=== PATIENT | male | born 1960 | race Caucasian/White ===

== ENCOUNTER 2016-09-10 08:32 | Outpatient (CLI) ==
[2016-08-18 13:39] VITALS: BMI 13.6
--- NOTE | 2016-09-10 11:05 | MRI ---
EXAM: MRI cervical spine without IV contrast. DATE: September 2016. HISTORY: C-spine surgical fusion. Right side greater than left neck pain causing headaches. TECHNIQUE: Sagittal and axial T1W and T2W sequences of the cervical spine along with sagittal IR an d coronal T2W sequences were obtained using 1.2 Cora magnet. No IV contrast. COMPARISON: CT head 30 June 2011. FINDINGS: Minor rightward curvature the mid cervical spine is observed. Susceptibility hardware fr om anterior plate and screw fixation is evident at C6-7. No acute c-spine fracture, subluxation, os seous malignancy, or jumped facet is evident. Prominent anterior osteophytes, disc desiccation, and moderate disc space narrowing are present at C5-6. Remaining cervical intervertebral discs are nor mal in height. T1W bone marrow signal is somewhat heterogeneous due to areas of fatty infiltration. Cervical and upper thoracic spinal cord reveals no definitive cord edema, myelomalacia, or neoplas m. 1 mm diameter T2W bright vertical signal is identified within the central spinal cord at C6-7 to the midbody of C7. Visible brainstem is normal. There is no Chiari 1 malformation. Mastoid air cells are normal. No thyroid, submandibular, or parotid gland neoplasm is apparent. Trachea, larynx, and epiglottis are normal. Minor bilateral apical/pleural lung scarring is noted. No suspicious lung mass, pneumonia, or pleural effusion is demonstrated. Segmental analysis: C2-3: Normal. C3-4: Broad posterior disc/osteophyte complex (2 mm AP right paracentral, 2.8 mm AP midline, 4 mm A P left paracentral) slightly flattens left anterolateral margin of the cord. Canal is 9.2 mm AP. Mi nimal right and moderate /marked left foraminal stenoses are due to uncinate hypertrophy and minor l eft facet arthropathy. C4-5: Small posterior disc/osteophyte complex (1.8 mm AP) flattens the cord anteriorly. There is m inor ligamentum flavum hypertrophy. Canal is 7.8 mm AP. Mild/moderate right and moderate left fora aly stenoses due to uncinate hypertrophy and minor facet disease. C5-6: Broad posterior disc/osteophyte complex (2.4 mm AP) touches the cord anteriorly. Canal is 8. 2 mm AP. Mild/moderate right and marked left foraminal stenoses due to uncinate hypertrophy and min or facet disease. C6-7: S/P ACDF. Minor posterior disc/osteophyte complex does not contact the cord. Canal is 9.8 m m AP. Mild right and moderate left foraminal stenoses due to uncinate hypertrophy. C7-T1: Normal, except for minor left facet arthropathy T1-2: Normal. IMPRESSIONS: 1. S/P ACDF at C6-7. 2. Multilevel central canal stenosis (C3-4: Mild. C4-5: Moderate. C5-6: Mild. C6-7: Mild). 3. Mild cervical cord flattening. Tiny syrinx at C6-7. 4. Multilevel foraminal stenosis, especially left C3-4. 5. Moderate bilateral apical lung scarring.
== END 2016-09-10 08:33 | disposition home or self-care (01) ==
LOC: RAD 08:32
PROVIDERS: ATTEND Nurse Practitioner Family
DX: M54.2 Cervicalgia (principal); Z98.890 Other specified postprocedural states

== ENCOUNTER 2016-10-09 11:12 | Outpatient (CLI) ==
[2016-08-18 13:39] VITALS: BMI 13.6
--- NOTE | 2016-10-09 11:56 | DI ---
EXAM: Eight views of the cervical spine. History: Cervicalgia. Comparison: MRI cervical spine 09/10/2016 Findings / impression: No acute fracture or subluxation. No prevertebral soft tissue swelling. Pr edental space is not widened. Grossly intact anterior fusion hardware at C6-7. Severe disc space n arrowing at C5-6. Mild to moderate disc space narrowing at C3-4. Atherosclerotic vascular calcific ations. No instability identified on flexion and extension views. The oblique images demonstrate m ultilevel bilateral bony neural foraminal narrowing secondary to uncovertebral and facet hypertrophy and most significant and moderate bilaterally at C4-5 and C5-6.
== END 2016-10-09 11:13 | disposition home or self-care (01) ==
LOC: RAD 11:12
PROVIDERS: ATTEND Nurse Practitioner Family
DX: M54.2 Cervicalgia (principal); M50.20 Other cervical disc displacement, unspecified cervical region; M50.30 Other cervical disc degeneration, unspecified cervical region

== ENCOUNTER 2016-10-15 08:19 | Outpatient (RCR) ==
[2016-08-18 13:39] VITALS: BMI 13.6
--- NOTE | 2016-10-15 09:26 | RS.OPPTEV2 ---
Date of Note: 10/15/16 Visit #: 1 Date of Evaluation: 10/15/16 Date of Onset/Injury/Change in Status: 09/06/15 Surgery Performed?: No Treatment Diagnosis: Neck pain History of Condition/Mechanism of Injury:: Patient has had neck pain for over 20 years and has had ACF of C6-7. He has been in pain management for greater than 10 years for his neck and back pain. He is a poor surgical candidate due to multiple medical complexities. Headaches are his worst pain and he has them continuously but the intensity varies. He uses supplimental O2 at night 2 L/ min due to severe COPD. He avoids pain meds and muscle relaxers as much as possible due to it interferring with his breathing. Prior Level of Function.....Patient was independent with: ADL's, Self Care, Work /Vocation, Caregiving, Ambulation/Mobility, Community Integration/Access Functional Limitations: Sleep, Self Care, ADL's, Reaching, Pushing, Pulling, Lifting, Carrying, Sitting, Standing, Bending, Squatting, Ambulation, Community Access/Integration Current Subjective/complaints:: Patient is very skeptical that PT is able to help him but he is not a surgical candidate and his pain is poorly controlled. He reports he has had PT numerous times in the past with only very temporary benefit (hours following tx). He reports compliance wtih the HEPs he has been given previously by physical therapy. He states that after pain management injections he has very minimal pain for a month or more and he is scheduled to receive these tomorrow. Medical History Medical History: COPD, Arthritis Medical History Comments:: fibromyalgia, he report an embolism which he says comes and goes. Surgical History: Cervical Spine, Other Surgical History Comments:: Aorta to femoral bypass, bilateral knee scopes, 11 cardiac stents Smoking Status: Current every day smoker Hx Home Medications: Plavix, Lipitor, albuterol, combavant, HCTZ, Flexiril, T[place]oli 10 mg Pain Assessment - Pain Description Pain Location: Throughout his neck and shoulders and radiates distally thru his spine. Pain Description: Burning, Tightness, Radiating, Chronic Pain Description: Constant pain Current Pain Intensity: 4-5/10 Worst Pain Intensity: 10/10 Other Comments regarding Pain:: Migraine type HAs are what stops him from being able to do anything. These occur 2-3 X/wk. Functional Outcome Measure Neck Disability Index: 17 - G Codes & Severity Modifier G Codes & Modifier: NA Source of G Code score: NA Observation - Observation Inspection: Patient holds his neck in a guarded position at all times. Posture: Forward Head General Range of Motion: BUE ROM is WNLs Muscle Strength: BUE strength including acid supervisor is WNLs. - ROM Comments: CROM is WFLs in all planes of motion. - Strength Cervical Extension: 5 Normal Cervical Flexion: 5 Normal Cervical Lateral Flexion: 5 Normal Shoulder ROM: Bilaterally WFL's Palpation Palpation Findings: Muscle Guarding Sensation - Sensation Sensation Description: Numbness (Occiput and BUEs intermittently) Interventions - Exercise/Activities/Manual Therapy Exercises/Activities: HEP was reviewed today and pt was able to demonstrate CROM ROM and cervical/UE strengthening exercises he performs routinely to maintain his ROM and strength. He demonstrated good technique. Total minutes of Exercise: 15 Manual Therapy: NA - Charges Total Direct Minutes: 15 Total Treatment Time: 45 Procedures billed for this date of service:: PT Eval (medium) & Ex Assessment Assessment: Chronic pain of cervical spine with most benefit found with pain management injections. He is independent with HEP and has failed to have significant benefit from PT in the past. Patient Education: Education of diagnosis, Body/Joint mechanics, Home Exercise Program Plan - Treatment to be Provided Procedures: Patient Education Modalities: No Modalities - Treatment Plan Frequency: Evaluation only Duration: One time treatment (Patient is compliant iw HEP from previous sessions and it was agreed that he will continue with pain management and if any of his conditions worsen he will present for further eval at that time. No further visits will be scheduled at this time.) ORDER # VISITS AND/OR THROUGH DATE: 10/15/2016 - Treatment Code (1) Cervical radiculopathy Comments: M54.12
== END 2016-11-03 ==
PROVIDERS: ATTEND Nurse Practitioner Family
DX: M54.2 Cervicalgia (principal); M50.20 Other cervical disc displacement, unspecified cervical region; M50.30 Other cervical disc degeneration, unspecified cervical region

== ENCOUNTER 2016-11-09 09:01 | Outpatient (CLI) ==
[2016-08-18 13:39] VITALS: BMI 13.6
--- NOTE | 2016-11-09 12:31 | CT ---
EXAM: CT chest without contrast HISTORY: Chronic obstructive pulmonary disease COMPARISON: CT chest 08/18/2016 and 02/15/2014 TECHNIQUE: Serial axial images of the chest were obtained from the lung apices to the upper abdomen without contrast. These were viewed in multiple planes. FINDINGS: The thyroid is normal. There is minimal atherosclerotic disease of the aorta with ascend ing aortic ectasia measuring 3.4 cm in diameter. The pulmonary arteries are mildly enlarged with th e right pulmonary artery measuring 1.9 cm in diameter. The heart is normal in size without pericard ial effusion. There are no pathologically enlarged mediastinal or hilar lymph nodes. There are calc ified mediastinal and AP window lymph nodes in place. There is no pneumothorax or pleural effusion. There is mild apical pleural thickening and emphysema tous disease present. There is mild persistent but improved airway thickening with significant inte rval improvement in ground-glass nodularity throughout both lungs. Calcified granuloma in the left upper lobe is unchanged. No additional consolidation, pulmonary nodule or mass is identified. The airways are patent. Soft tissues in the upper abdomen demonstrate a right renal cyst measuring 1.8 cm in diameter. The osseous structures demonstrate no lytic or blastic lesion. There is anterior fusion hardware of the cervical spine. IMPRESSION: 1. Interval improvement and bronchial wall thickening with nodular ground-glass which has resolved since prior examination consistent with small airways infection versus inflammation. 2. No acute consolidation or additional nodule. 3. Scattered emphysematous disease. 4. Unchanged right renal cyst.
== END 2016-11-09 09:02 | disposition home or self-care (01) ==
LOC: RAD 09:01
PROVIDERS: ATTEND Nurse Practitioner Family
DX: J44.9 Chronic obstructive pulmonary disease, unspecified (principal); I10 Essential (primary) hypertension; R93.8 Abnormal findings on diagnostic imaging of other specified body structures

== ENCOUNTER 2017-01-22 10:29 | Outpatient (CLI) ==
[2016-09-10 08:35] VITALS: BMI 13.6
[2017-01-22 10:58] LABS: BASOPHILS % (AUTO) 0.3 % (0.0-3.0); EOSINOPHILS # (AUTO) 0.4 K/ul (0.0-0.7); EOSINOPHILS % (AUTO) 5.5 % (0.0-7.0); HEMATOCRIT 40.2 % (42.0-52.0); HEMOGLOBIN 13.8 g/dl (14.0-18.0); IMMATURE GRANULOCYTE % (AUTO) 0.3 % (0.0-5.0); LYMPHOCYTES % (AUTO) 26.6 (10.0-50.0); MEAN CORPUSCULAR HEMOGLOBIN 30.3 pg (27.0-31.0); MEAN CORPUSCULAR HGB CONC 34.3 (31.8-35.4); MEAN CORPUSCULAR VOLUME 88.4 fl (80.0-94.0); MONOCYTES # (AUTO) 0.8 K/uL (0.4-2.0); MONOCYTES % (AUTO) 10.2 (0-10); NEUTROPHILS # (AUTO) 4.4 K/ul (2.0-6.9); NEUTROPHILS % (AUTO) 57.1; PLATELET COUNT 193 10^3/uL (140-440); RED BLOOD COUNT 4.55 10^6/ul (4.70-6.10); WHITE BLOOD COUNT 7.66 K/ul (4.2-10.2)
[2017-01-22 11:27] LABS: ALBUMIN 3.8 g/dL (3.4-5.0); ALBUMIN/GLOBULIN RATIO 1.12; ANION GAP 14.2; BILIRUBIN,TOTAL 0.47 mg/dL (0.00-1.20); BUN/CREATININE RATIO 10.6; CALCIUM 9.5 mg/dL (8.2-10.2); CHOL/HDL RATIO 3.1 (4.5-6.4); CREATININE 1.32 mg/dL (0.60-1.10); POTASSIUM 4.2 mmol/L (3.5-5.1); TOTAL PROTEIN 7.2 g/dL (6.4-8.2)
== END 2017-01-22 10:30 | disposition home or self-care (01) ==
LOC: LAB 10:29
PROVIDERS: ATTEND Emergency Medicine
DX: E78.5 Hyperlipidemia, unspecified (principal); J44.9 Chronic obstructive pulmonary disease, unspecified; I25.10 Atherosclerotic heart disease of native coronary artery without angina pectoris; I73.9 Peripheral vascular disease, unspecified; I10 Essential (primary) hypertension
CPT/HCPCS: 36415; 80053; 80061; 84443; 85025

== ENCOUNTER 2017-06-04 16:16 | Outpatient (CLI) ==
[2017-06-04 21:54] VITALS: BMI 12.9
== END 2017-06-04 16:17 | disposition critical access hospital (66) ==
LOC: AMBL 16:16
DX: R53.1 Weakness (principal); R63.0 Anorexia; R06.9 Unspecified abnormalities of breathing; R11.10 Vomiting, unspecified; R00.0 Tachycardia, unspecified

== ENCOUNTER 2017-06-04 16:24 | Inpatient (IN) ==
--- NOTE | 2017-06-04 16:53 | ED.PDOC ---
General Stated Complaint: Nausea, vomiting, diarrhea, SOB, weakness x2 weeks, getting progressively worse. Too weak to stand. unable to keep down any meds. Information Source: Patient, EMT <NANCY WHITTAKER - Last Filed: 06/04/17 19:10> Time Seen by Physician: 16:40 Nursing and Triage Documentation Reviewed and Agree: Yes <KAMILA COOLEY - Last Filed: 06/04/17 20:27> ED Provider: Dr. KAMILA COOLEY Chief Complaint: Weakness 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 ), Nausea, Vomiting (TNTC in past 24 hours), Diarrhea Recent Echo/LV Function: No Respiratory Distress: Mild JVD Present: No Tachypnea Present: No Stridor Present: No Abdominal Findings: Present: Normal findings Meningeal Signs Positive: No Focal Weakness: Present: None Focal Sensory Loss: Present: None Gait: Unable Gag Reflex Present: Yes Babinski Sign: Negative Right, Negative Left Skin Findings: Present: Normal findings Joint Swelling Present: No In-Dwelling Device Present: No Differential Diagnosis: Cardiac Ischemia, Sepsis, UTI, Other (COPD acute exac, viral GE) Quality Indicators For Pneumonia/CAP: Blood Cultures-SCU admit, SpO2 assessed, Vital signs, Mental status assessed <NANCY WHITTAKER - Last Filed: 06/04/17 19:10> Review of Systems - Review Of Systems Constitutional: Reports: Weakness Eyes: Reports: No symptoms Ears, Nose, Mouth, Throat: Reports: No symptoms Respiratory: Reports: Cough (FLOOR COVERING PRINTER ASSISTANT), Short of air Cardiac: Reports: No symptoms GI: Reports: Diarrhea, Nausea, Vomiting : Reports: No symptoms Musculoskeletal: Reports: Muscle pain (aching all over) Skin: Reports: No symptoms Neurological: Reports: No symptoms All Other Systems: Reviewed and Negative <NANCY WHITTAKER - Last Filed: 06/04/17 19:10> Past Medical History - Past Medical History Previously Healthy: No Endocrine: Reports: Dyslipidemia Cardiovascular: Reports: CAD, [place], Hypertension Respiratory: Reports: COPD Hematological: Reports: None Gastrointestinal: Reports: GERD Genitourinary: Reports: Other (prostate DISEASE ) Neuro/Psych: Reports: None Musculoskeletal: Reports: None Cancer: Reports: None - Surgical History General Surgical History: Reports: Stent, Other (pacemaker->removed) - Family History Family History: Reports: Unknown - Social History Smoking Status: Former smoker Hx Substance Use: No Alcohol Screening: None Lives: With family - Immunizations Tetanus Shot up to Date: No Influenza Vaccine within 12 Months: No Pneumococcal Vaccine up to Date: No <NANCY WHITTAKER - Last Filed: 06/04/17 19:10> Physical Exam - Physical Exam Appearance: Ill-appearing Ill-appearing: Moderate Pain Distress: None Eyes: MIKEL, EOMI, Conjunctiva clear ENT: Nose normal, Oropharynx normal, TMs Occluded (TMs betts and dull) Neck: Supple Respiratory: Airway patent, Breath sounds equal, Rhonchi (scattered rhonchi in AF) Cardiovascular: RRR, Pulses normal, No rub, No murmur GI/: Soft, No masses, Bowel sounds normal, No Organomegaly, Tender (mild epigastric tenderness) Musculoskeletal: ROM intact, No edema, No calf tenderness, Limited strength Skin: Warm, Dry, Normal color Neurological: Sensation intact, Motor intact, Reflexes intact, Cranial nerves intact, Alert, Oriented Psychiatric: Affect appropriate, Mood appropriate <NANCY WHITTAKER - Last Filed: 06/04/17 19:10> Interpretation - Radiology Interpretation Radiology Interpretation By: Radiologist Radiology Results: No acute changes Exam Interpreted: Portable CXR Xray Comments: Lungs: COPD <NANCY WHITTAKER - Last Filed: 06/04/17 19:10> Re-Evaluation - Re-Evaluation Time of Re-Evaluation: 18:51 Status: Improved Vital Signs Stable: Yes Appearance: NAD Lungs: Other (scattered rhonchi) Skin: Warm and Dry Neuro: Alert and Oriented X3 CV: RRR Additional Comments: patient feeling better after some IV fluids in <NANCY WHITTAKER - Last Filed: 06/04/17 19:10> - Re-Evaluation Time of Re-Evaluation: 20:26 Status: Improved Vital Signs Stable: Yes Appearance: NAD <KAMILA COOLEY - Last Filed: 06/04/17 20:27> Physician Notification - Case Discussed Physician Notified: Dr. Hutchins Time of Notification: 18:56 (agrees patient needs admission but requests ABG ( refused by patient) & D-dimer first. CT PE protocol if positive) Endorsed To/Discussed With: Dr. Cooley Time of Discussion: 19:11 <NANCY WHITTAKER - Last Filed: 06/04/17 19:10> Critical Care Note - Critical Care Note Total Time (mins): 0 <NANCY WHITTAKER - Last Filed: 06/04/17 19:10> - Critical Care Note Total Time (mins): 35 <KAMILA COOLEY - Last Filed: 06/04/17 20:27> Course - Course Hematology/Chemistry: 06/04/17 17:00 06/04/17 17:00 <NACNY WHITTAKER - Last Filed: 06/04/17 19:10> - Course Hematology/Chemistry: 06/04/17 17:00 06/04/17 17:00 <KAMILA COOLEY - Last Filed: 06/04/17 20:27> - Course Orders, Labs, Meds: Lab Review 06/04/17 06/04/17 06/04/17 17:00 17:00 17:00 WBC 6.97 RBC 4.95 Hgb 14.8 Hct 42.5 MCV 85.9 MCH 29.9 MCHC 34.8 RDW Coeff of Demian 13.0 Plt Count 204 Immature Gran % (Auto) 0.4 Neut % (Auto) 80.9 Lymph % (Auto) 12.2 [place] % (Auto) 6.2 Eos % (Auto) 0.0 Baso % (Auto) 0.3 Immature Gran # (Auto) 0.0 Neut # 5.6 Lymph # 0.9 [place] # 0.4 Eos # 0.0 Baso # 0.0 D-Dimer (Manual) Sodium 141 Potassium 3.9 Chloride 100 Carbon Dioxide 23 Anion Gap 21.9 BUN 54 H Creatinine 1.32 H Estimated GFR (MDRD) 56.00 BUN/Creatinine Ratio 40.90 Glucose 115 H Calcium 10.4 H Total Bilirubin 0.58 AST 104 H ALT 77 Alkaline Phosphatase 81 Total Creatine Kinase 90 Troponin I 0.0140 B-Natriuretic Peptide 48 Total Protein 8.2 Albumin 3.4 Globulin 4.8 Albumin/Globulin Ratio 0.71 Influenza A (Rapid) Influenza B (Rapid) 06/04/17 06/04/17 17:00 17:10 WBC RBC Hgb Hct MCV MCH MCHC RDW Coeff of Demian Plt Count Immature Gran % (Auto) Neut % (Auto) Lymph % (Auto) [place] % (Auto) Eos % (Auto) Baso % (Auto) Immature Gran # (Auto) Neut # Lymph # [place] # Eos # Baso # D-Dimer (Manual) 4029.55 Sodium Potassium Chloride Carbon Dioxide Anion Gap BUN Creatinine Estimated GFR (MDRD) BUN/Creatinine Ratio Glucose Calcium Total Bilirubin AST ALT Alkaline Phosphatase Total Creatine Kinase Troponin I B-Natriuretic Peptide Total Protein Albumin Globulin Albumin/Globulin Ratio Influenza A (Rapid) Negative Influenza B (Rapid) Negative Orders Category Date Time Status ADMIT PATIENT INPATIENT .TO MEDS[facility]G (MONITORED BED) ADMISSION 06/04/17 20: 07 Ordered EKG-(ED ONLY) Stat CARDIO 06/04/17 16:50 Completed OXYGEN Routine CARDIO 06/04/17 20:07 Ordered ACTIVITY .Up ad Janet CARE 06/04/17 20:09 Ordered GIVE HS SNACK 2100 CARE 06/04/17 20:11 Ordered INTAKE & OUTPUT Q8HR CARE 06/04/17 20:07 Ordered IV ACCESS ONCE CARE 06/04/17 16:51 Active TELEMETRY MONITORING TELE CARE 06/04/17 20:08 Ordered VITAL SIGNS Q4HR CARE 06/04/17 20:09 Ordered CLEAR LIQUID DIET DIETARY 06/04/17 Breakfast Ordered HS SNACK DIETARY 06/04/17 Dinner Ordered ED APPLY O2 .ONCE EMERGENCY 06/04/17 16:51 Active ED VITAL SIGNS Q1HR EMERGENCY 06/04/17 16:51 Active BASIC METABOLIC PANEL DAILY@0600 LAB 06/05/17 06:00 Ordered BASIC METABOLIC PANEL DAILY@0600 LAB 06/06/17 06:00 Ordered BASIC METABOLIC PANEL DAILY@0600 LAB 06/07/17 06:00 Ordered BASIC METABOLIC PANEL DAILY@0600 LAB 06/08/17 06:00 Ordered BASIC METABOLIC PANEL DAILY@0600 LAB 06/09/17 06:00 Ordered BASIC METABOLIC PANEL DAILY@0600 LAB 06/10/17 06:00 Ordered BASIC METABOLIC PANEL DAILY@0600 LAB 06/11/17 06:00 Ordered BASIC METABOLIC PANEL DAILY@0600 LAB 06/12/17 06:00 Ordered BASIC METABOLIC PANEL DAILY@0600 LAB 06/13/17 06:00 Ordered BASIC METABOLIC PANEL DAILY@0600 LAB 06/14/17 06:00 Ordered BASIC METABOLIC PANEL DAILY@0600 LAB 06/15/17 06:00 Ordered BASIC METABOLIC PANEL DAILY@06 LAB 06/16/17 06:00 Ordered BASIC METABOLIC PANEL DAILY@06 LAB 06/17/17 06:00 Ordered BASIC METABOLIC PANEL DAILY@0600 LAB 06/18/17 06:00 Ordered BASIC METABOLIC PANEL DAILY@0600 LAB 06/19/17 06:00 Ordered BASIC METABOLIC PANEL DAILY@0600 LAB 06/20/17 06:00 Ordered BASIC METABOLIC PANEL DAILY@06 LAB 06/21/17 06:00 Ordered BASIC METABOLIC PANEL DAILY@06 LAB 06/22/17 06:00 Ordered BASIC METABOLIC PANEL DAILY@06 LAB 06/23/17 06:00 Ordered BASIC METABOLIC PANEL DAILY@06 LAB 06/24/17 06:00 Ordered BLOOD CULTURE Stat LAB 06/04/17 18:00 Received BNP [B-TYPE NATRIURETIC PEPTIDE] Stat LAB 06/04/17 17:00 Completed CBC W/ AUTO DIFF DAILY@0600 LAB 06/05/17 06:00 Ordered CBC W/ AUTO DIFF DAILY@06 LAB 06/06/17 06:00 Ordered CBC W/ AUTO DIFF DAILY@06 LAB 06/07/17 06:00 Ordered CBC W/ AUTO DIFF DAILY@06 LAB 06/08/17 06:00 Ordered CBC W/ AUTO DIFF DAILY@06 LAB 06/09/17 06:00 Ordered CBC W/ AUTO DIFF DAILY@06 LAB 06/10/17 06:00 Ordered CBC W/ AUTO DIFF DAILY@0600 LAB 06/11/17 06:00 Ordered CBC W/ AUTO DIFF DAILY@06 LAB 06/12/17 06:00 Ordered CBC W/ AUTO DIFF DAILY@06 LAB 06/13/17 06:00 Ordered CBC W/ AUTO DIFF DAILY@06 LAB 06/14/17 06:00 Ordered CBC W/ AUTO DIFF DAILY@06 LAB 06/15/17 06:00 Ordered CBC W/ AUTO DIFF DAILY@06 LAB 06/16/17 06:00 Ordered CBC W/ AUTO DIFF DAILY@06 LAB 06/17/17 06:00 Ordered CBC W/ AUTO DIFF DAILY@0600 LAB 06/18/17 06:00 Ordered CBC W/ AUTO DIFF DAILY@0600 LAB 06/19/17 06:00 Ordered CBC W/ AUTO DIFF DAILY@06 LAB 06/20/17 06:00 Ordered CBC W/ AUTO DIFF DAILY@0600 LAB 06/21/17 06:00 Ordered CBC W/ AUTO DIFF DAILY@0600 LAB 06/22/17 06:00 Ordered CBC W/ AUTO DIFF DAILY@0600 LAB 06/23/17 06:00 Ordered CBC W/ AUTO DIFF DAILY@0600 LAB 06/24/17 06:00 Ordered CBC W/ AUTO DIFF Stat LAB 06/04/17 17:00 Completed CK [CREATINE KINASE] Stat LAB 06/04/17 17:00 Completed COMPREHENSIVE METABOLIC PANEL Stat LAB 06/04/17 17:00 Completed D-DIMER Stat LAB 06/04/17 17:00 Completed MOLECULAR GROUP A STREP Stat LAB 06/04/17 17:10 Results RAPID FLU A/B Stat LAB 06/04/17 17:10 Completed STREP SCREEN Stat LAB 06/04/17 17:10 Results TROPONIN I Stat LAB 06/04/17 17:00 Completed URINALYSIS C & S IF INDICATED Stat LAB 06/04/17 16:50 Uncollected Ceftriaxone Sodium [Rocephin] 1 gm MEDS 06/04/17 20:30 Ordered 0.9 % Sodium Chloride [Sodium Chloride] 50 ml IV DAILY Enoxaparin Sodium [Lovenox] MEDS 06/05/17 09:00 Ordered 40 mg SUBCUT DAILY Methylprednisolone Sod Succ/Pf [Solu-Medrol 40 mg] MEDS 06/04/17 21:00 Ordered 40 mg IVP Q8HR Ondansetron HCl/Pf [Zofran 4 mg/2 ml] MEDS 06/04/17 18:52 Discontinued 4 mg IVP ONCE STA Ondansetron HCl/Pf [Zofran 4 mg/2 ml] MEDS 06/04/17 20:07 Ordered 4 mg IVP Q6H PRN Sodium Chloride 0.9% [Sodium Chloride] 1,000 ml MEDS 06/04/17 20:30 Ordered IV 125 mls/hr Sodium Chloride 0.9% [Sodium Chloride] 1,000 ml MEDS 06/04/17 17:34 Discontinued IV BOLUS RESUSCITATION STATUS Routine OTHERS 06/04/17 20:07 Ordered CHEST, 1V AP ONLY Stat RADS 06/04/17 16:51 Completed PT CONSULT Routine THERAPIES 06/04/17 Ordered Medications Generic Name Dose Route Start Last Admin Trade Name Freq PRN Reason Stop Dose Admin Albuterol/Ipratropium 1 vial 06/04/17 20:18 Duoneb NEB RTQ4H PRN Wheezing Alprazolam 0.5 mg 06/05/17 08:00 Xanax PO BID BREAKFAST&LUNCH [facility] Aspirin 81 mg 06/05/17 09:00 Aspirin Ec PO DAILY [facility] Atorvastatin Calcium 20 mg 06/05/17 09:00 Lipitor PO DAILY [facility] Clopidogrel Bisulfate 75 mg 06/05/17 09:00 Plavix PO DAILY [facility] Enoxaparin Sodium 40 mg 06/05/17 09:00 Lovenox SUBCUT DAILY [facility] Ceftriaxone Sodium 1 gm/ 50 mls @ 75 mls/hr 06/04/17 20:30 Sodium Chloride IV DAILY [facility] Sodium Chloride 1,000 mls @ 125 mls/hr 06/04/17 20:30 Sodium Chloride IV .Q8H [facility] Azithromycin 500 mg/ Sodium 250 mls @ 125 mls/hr 06/05/17 09:00 Chloride IV 06/08/17 08:59 DAILY [facility] Methylprednisolone Sodium Succinate 40 mg 06/04/17 21:00 Solu-Medrol 40 Mg IVP Q8HR [facility] Non-Formulary Medication 1 tab 06/04/17 21:00 Hydrocodone Bit/Acetaminophen PO TID [facility] Non-Formulary Medication 100 mg 06/04/17 21:00 Metoprolol Tartrate [Metoprolol Tartrate] PO BID [facility] Non-Formulary Medication 1 tab 06/04/17 20:19 Nitroglycerin [Nitrostat] SL PRN PRN chest pain Ondansetron HCl 4 mg 06/04/17 20:07 Zofran 4 Mg/2 Ml IVP Q6H PRN Nausea / Vomiting Discontinued Medications Generic Name Dose Route Start Last Admin Trade Name Freq PRN Reason Stop Dose Admin Sodium Chloride 1,000 mls @ 1,000 mls/hr 06/04/17 17:34 06/04/17 18:04 Sodium Chloride IV 06/04/17 18:33 150 mls/hr BOLUS STA Administration Ondansetron HCl 4 mg 06/04/17 18:52 06/04/17 18:57 Zofran 4 Mg/2 Ml IVP 06/04/17 18:53 4 mg ONCE STA Administration Vital Signs: Temp Pulse Resp BP Pulse Ox 06/04/17 18:40 120/94 H 06/04/17 18:03 123/91 H 94 L 06/04/17 17:07 122/91 H 06/04/17 16:25 98.9 F 95 H 28 H 128/100 H 93 L Departure <WHITTAKERNANCY - Last Filed: 06/04/17 19:10> - Departure Time of Disposition: 20:24 Pt referred to PMD for follow-up: No (admitted ) Disposition Discussed With: Patient <KAMILA COOLEY - Last Filed: 06/04/17 20:27> - Departure Disposition: ADMITTED INPATIENT Discharge Problem: COPD exacerbation, Dehydration, moderate Chronic renal insufficiency Qualifiers: Chronic kidney disease stage: stage 2 (mild) Qualified Code(s): N18.2 - Chronic kidney disease, stage 2 (mild) Condition: Fair Allergies/Adverse Reactions: Allergies promethazine [From Phenergan] Adverse Reaction (Verified 06/04/17 16:36) Home Medications: Ambulatory Orders Aspirin [Aspirin EC] 81 mg PO DAILY 11/07/13 Hydrocodone Bit/Acetaminophen [Lortab 10-500] 1 tab PO TID 11/07/13 Nitroglycerin [Nitrostat] 1 tab SL PRN PRN 11/07/13 Alprazolam [Xanax] 0.5 mg PO BID BREAKFAST&LUNCH 08/08/15
[2017-06-04 17:15] LABS: BASOPHILS % (AUTO) 0.3 % (0.0-3.0); HEMATOCRIT 42.5 % (42.0-52.0); HEMOGLOBIN 14.8 g/dl (14.0-18.0); IMMATURE GRANULOCYTE % (AUTO) 0.4 % (0.0-5.0); LYMPHOCYTES # (AUTO) 0.9 K/uL (0.60-3.4); LYMPHOCYTES % (AUTO) 12.2 (10.0-50.0); MEAN CORPUSCULAR HEMOGLOBIN 29.9 pg (27.0-31.0); MEAN CORPUSCULAR HGB CONC 34.8 (31.8-35.4); MEAN CORPUSCULAR VOLUME 85.9 fl (80.0-94.0); MONOCYTES # (AUTO) 0.4 K/uL (0.4-2.0); MONOCYTES % (AUTO) 6.2 (0-10); NEUTROPHILS # (AUTO) 5.6 K/ul (2.0-6.9); NEUTROPHILS % (AUTO) 80.9; PLATELET COUNT 204 10^3/uL (140-440); RED BLOOD COUNT 4.95 10^6/ul (4.70-6.10); WHITE BLOOD COUNT 6.97 K/ul (4.2-10.2)
--- NOTE | 2017-06-04 17:24 | DI ---
EXAM: Single view of the chest. History: Weakness, short of breath Comparison: Chest radiograph 09/02/2016, chest CT 11/09/2016 Findings: Heart size is normal. Hyperinflation. No focal consolidation. No appreciable pleural fl uid and no pneumothorax. No acute osseous abnormalities. Postsurgical changes of the cervical spine . Impression: No acute cardiopulmonary process. Chronic obstructive pulmonary disease.
[2017-06-04 17:33] LABS: ALBUMIN 3.4 g/dL (3.4-5.0); ALBUMIN/GLOBULIN RATIO 0.71; ANION GAP 21.9; BILIRUBIN,TOTAL 0.58 mg/dL (0.00-1.20); BUN/CREATININE RATIO 40.9; CALCIUM 10.4 mg/dL (8.2-10.2); CREATININE 1.32 mg/dL (0.60-1.10); POTASSIUM 3.9 mmol/L (3.5-5.1); TOTAL PROTEIN 8.2 g/dL (6.4-8.2); TROPONIN I 0.014 ng/ml (0.0000-0.4000)
[2017-06-04] MEDS ORDERED: SODIUM CHLORIDE 1,000 ML IV STA (17:34)
[2017-06-04 17:37] LABS: FLU INTERNAL QC INTERNAL QC VALID; RAPID FLU A NEGATIVE (NEGATIVE); RAPID FLU B NEGATIVE (NEGATIVE)
[2017-06-04] MEDS ORDERED: ZOFRAN 4 MG/2 ML IVP STA (18:52)
[2017-06-04] MEDS ORDERED: DUONEB NEB PRN (20:18)
[2017-06-04] MEDS ORDERED: NITROGLYCERIN SL PRN (20:19)
[2017-06-04] MEDS ORDERED: PROTONIX IV IVP STA (20:25)
[2017-06-04] MEDS ORDERED: ROCEPHIN 1 GM in SODIUM CHLORIDE 50 ML IV SCH (20:30)
[2017-06-04] MEDS ORDERED: NON-FORMULARY MEDICATION (Hydrocodone Bit/Acetaminophen 1 TAB) PO SCH (21:00)
[2017-06-04] MEDS ORDERED: NON-FORMULARY MEDICATION (Metoprolol Tartrate [Metoprolol Tartrate] 100 MG) PO SCH (21:00)
[2017-06-04] MEDS ORDERED: ROCEPHIN ONE ×2 (21:18→21:20)
[2017-06-04] MEDS: SOLU-MEDROL 40 MG IVP SCH (21:26)
[2017-06-04] MEDS: ZOFRAN 4 MG/2 ML IVP PRN (21:26)
[2017-06-04] MEDS ORDERED: SODIUM CHLORIDE 50 ML IV ONE (21:27)
[2017-06-04 21:54] VITALS: BMI 12.9
[2017-06-05] MEDS ORDERED: ACETAMINOPHEN PO SCH (01:03)
[2017-06-05] MEDS ORDERED: HYDROCODONE PO SCH (01:03)
[2017-06-05] MEDS: SODIUM CHLORIDE 1,000 ML IV SCH ×4 (01:18→19:05)
[2017-06-05 05:31] LABS: BASOPHILS % (AUTO) 0.1 % (0.0-3.0); HEMATOCRIT 33.8 % (42.0-52.0); HEMOGLOBIN 11.4 g/dl (14.0-18.0); IMMATURE GRANULOCYTE % (AUTO) 0.7 % (0.0-5.0); LYMPHOCYTES # (AUTO) 0.6 K/uL (0.60-3.4); LYMPHOCYTES % (AUTO) 7.9 (10.0-50.0); MEAN CORPUSCULAR HEMOGLOBIN 29.8 pg (27.0-31.0); MEAN CORPUSCULAR HGB CONC 33.7 (31.8-35.4); MEAN CORPUSCULAR VOLUME 88.3 fl (80.0-94.0); MONOCYTES # (AUTO) 0.2 K/uL (0.4-2.0); NEUTROPHILS # (AUTO) 6.8 K/ul (2.0-6.9); NEUTROPHILS % (AUTO) 88.3; PLATELET COUNT 192 10^3/uL (140-440); RED BLOOD COUNT 3.83 10^6/ul (4.70-6.10); WHITE BLOOD COUNT 7.68 K/ul (4.2-10.2)
[2017-06-05] MEDS: SOLU-MEDROL 40 MG IVP SCH ×3 (05:49→20:31)
[2017-06-05 06:07] LABS: ANION GAP 17.4; BUN/CREATININE RATIO 36.66; CREATININE 1.2 mg/dL (0.60-1.10); POTASSIUM 4.4 mmol/L (3.5-5.1)
[2017-06-05 06:09] LABS: ADD URINE MICROSCOPIC YES; BILIRUBIN,URINE Negative (NEGATIVE); KETONES,URINE 1+ (NEGATIVE); LEUKOCYTE ESTERASE ,URINE Negative (NEGATIVE); NITRITE,URINE Negative (NEGATIVE); PH,URINE 5.5 (5-9); PROTEIN,URINE 1+ (NEGATIVE); URINE, BLOOD Negative (NEGATIVE)
[2017-06-05] MEDS ORDERED: NITROSTAT SL PRN (06:59)
[2017-06-05] MEDS: ZOFRAN 4 MG/2 ML IVP PRN (08:49)
[2017-06-05] MEDS: XANAX PO SCH ×2 (09:03→12:01)
[2017-06-05] MEDS: ASPIRIN EC PO SCH (09:04)
[2017-06-05] MEDS: LOVENOX SUBCUT SCH (09:04)
[2017-06-05] MEDS: LIPITOR PO SCH (09:04)
[2017-06-05] MEDS: NORCO 10-325 PO SCH ×3 (09:04→20:32)
[2017-06-05] MEDS: LOPRESSOR PO SCH ×2 (09:04→20:32)
[2017-06-05] MEDS: PLAVIX PO SCH (09:04)
[2017-06-05] MEDS: ZITHROMAX 500 MG in SODIUM CHLORIDE 250 ML IV SCH (09:05)
[2017-06-05] MEDS: ROCEPHIN 1 GM in SODIUM CHLORIDE 50 ML IV SCH (20:31)
[2017-06-06] MEDS: SODIUM CHLORIDE 1,000 ML IV SCH ×4 (02:39→20:43)
[2017-06-06 05:34] LABS: BASOPHILS % (AUTO) 0.3 % (0.0-3.0); HEMATOCRIT 32.8 % (42.0-52.0); HEMOGLOBIN 10.8 g/dl (14.0-18.0); IMMATURE GRANULOCYTE % (AUTO) 0.6 % (0.0-5.0); LYMPHOCYTES # (AUTO) 0.6 K/uL (0.60-3.4); LYMPHOCYTES % (AUTO) 7.5 (10.0-50.0); MEAN CORPUSCULAR HEMOGLOBIN 29.8 pg (27.0-31.0); MEAN CORPUSCULAR HGB CONC 32.9 (31.8-35.4); MEAN CORPUSCULAR VOLUME 90.4 fl (80.0-94.0); MONOCYTES # (AUTO) 0.3 K/uL (0.4-2.0); NEUTROPHILS # (AUTO) 6.8 K/ul (2.0-6.9); NEUTROPHILS % (AUTO) 87.6; PLATELET COUNT 250 10^3/uL (140-440); RED BLOOD COUNT 3.63 10^6/ul (4.70-6.10); WHITE BLOOD COUNT 7.75 K/ul (4.2-10.2)
[2017-06-06] MEDS: ZOFRAN 4 MG/2 ML IVP PRN (05:42)
[2017-06-06] MEDS: SOLU-MEDROL 40 MG IVP SCH ×3 (05:42→20:57)
[2017-06-06 05:54] LABS: ANION GAP 12.8; BUN/CREATININE RATIO 32.82; CALCIUM 8.2 mg/dL (8.2-10.2); CREATININE 1.31 mg/dL (0.60-1.10); POTASSIUM 3.8 mmol/L (3.5-5.1)
[2017-06-06] MEDS: LOVENOX SUBCUT SCH (09:49)
[2017-06-06] MEDS: LIPITOR PO SCH (09:49)
[2017-06-06] MEDS: XANAX PO SCH ×2 (09:49→12:09)
[2017-06-06] MEDS: ZITHROMAX 500 MG in SODIUM CHLORIDE 250 ML IV SCH (09:49)
[2017-06-06] MEDS: NORCO 10-325 PO SCH ×3 (09:49→20:44)
[2017-06-06] MEDS: PLAVIX PO SCH (09:49)
[2017-06-06] MEDS: ASPIRIN EC PO SCH (09:49)
--- NOTE | 2017-06-06 09:55 | CT ---
EXAM: CT scan of the abdomen and pelvis without contrast HISTORY: Abdominal pain TECHNIQUE: Imaging of the abdomen and pelvis was performed without intravenous contrast. 3 mm thin axial images and coronal and sagittal reconstructions were provided for interpretation. Comparison 03/04/2016. FINDINGS: The pancreas, adrenal glands and kidneys appear normal. The proximal ureters are normal s ize. The small and large bowel loops are normal caliber. There is no free air. No acute abnormalit ies are seen within the anterior abdominal wall. No retroperitoneal abnormalities are seen. The helical images obtained through the pelvis demonstrate a normal appearance of the rectum, urinary bladder. There is no free fluid seen within the pelvis. Scattered diverticula are seen within the sigmoid colon without acute inflammation. Lung bases are clear. No lytic or blastic lesions are see n within the osseous structures. IMPRESSION: There is no bowel obstruction or acute inflammatory change seen within the abdomen and p elida. There is no ureteral obstruction. Mild diverticular disease of the sigmoid colon without acute inflammation.
[2017-06-06] MEDS: ROCEPHIN 1 GM in SODIUM CHLORIDE 50 ML IV SCH (20:44)
[2017-06-07] MEDS: SODIUM CHLORIDE 1,000 ML IV SCH ×3 (04:43→23:13)
[2017-06-07] MEDS: SOLU-MEDROL 40 MG IVP SCH ×3 (05:09→21:29)
[2017-06-07] MEDS: ZOFRAN 4 MG/2 ML IVP PRN (05:10)
[2017-06-07 05:50] LABS: BASOPHILS % (AUTO) 0.1 % (0.0-3.0); HEMATOCRIT 29.9 % (42.0-52.0); HEMOGLOBIN 9.7 g/dl (14.0-18.0); LYMPHOCYTES # (AUTO) 0.4 K/uL (0.60-3.4); LYMPHOCYTES % (AUTO) 2.8 (10.0-50.0); MEAN CORPUSCULAR HEMOGLOBIN 29.9 pg (27.0-31.0); MEAN CORPUSCULAR HGB CONC 32.4 (31.8-35.4); MEAN CORPUSCULAR VOLUME 92.3 fl (80.0-94.0); MONOCYTES # (AUTO) 0.4 K/uL (0.4-2.0); MONOCYTES % (AUTO) 2.9 (0-10); NEUTROPHILS # (AUTO) 12.5 K/ul (2.0-6.9); NEUTROPHILS % (AUTO) 93.2; PLATELET COUNT 296 10^3/uL (140-440); RED BLOOD COUNT 3.24 10^6/ul (4.70-6.10); WHITE BLOOD COUNT 13.42 K/ul (4.2-10.2)
[2017-06-07 06:19] LABS: ANION GAP 14.3; BUN/CREATININE RATIO 31.25; CALCIUM 8.2 mg/dL (8.2-10.2); CREATININE 1.12 mg/dL (0.60-1.10); POTASSIUM 4.3 mmol/L (3.5-5.1)
[2017-06-07] MEDS: ZITHROMAX 500 MG in SODIUM CHLORIDE 250 ML IV SCH (08:53)
[2017-06-07] MEDS: PLAVIX PO SCH (08:53)
[2017-06-07] MEDS: LIPITOR PO SCH (08:53)
[2017-06-07] MEDS: LOVENOX SUBCUT SCH (08:53)
[2017-06-07] MEDS: XANAX PO SCH ×2 (08:54→12:45)
[2017-06-07] MEDS: ASPIRIN EC PO SCH (08:54)
[2017-06-07] MEDS: MUCINEX PO SCH ×2 (08:54→20:31)
[2017-06-07] MEDS: NORCO 10-325 PO SCH ×3 (08:54→20:31)
--- NOTE | 2017-06-07 12:59 | HP ---
DATE OF SERVICE: 06/04/17 CHIEF COMPLAINT: Shortness of breath HISTORY OF PRESENT ILLNESS: This is a 58 year old male with severe COPD. He came to the emergency room with the coughing, congestion and getting yellow/green phlegm, feeling weak and tired , has nausea, watery diarrhea, abdominal cramps, nausea and vomiting which consisted of the food material and water and whatever he eats but nonbloody and non bile. The patient came to the emergency room. The patient is cachetic. The patient is seen initially by Dr. Reed and blood pressure was 128/100, temperature 98.8, D-Dimer was 4,000, BUN 54, creatinine 1.32, urine was negative and serology negative. X-ray of chest done which showed the COPD but no pneumonia. At that time after the urine tho the patient had a elevated D- dimer because of the patient's elevated BUN and creatinine. CT of the chest with PE protocol was not able to be done. At that time the patient was admitted to the hospital for the COPD exacerbation and bronchitis, acute renal failure, dehydration and gastroenteritis. REVIEW OF SYSTEMS: CONSTITUTIONAL: No fever, no chills. Weakness, Tiredness. HEENT: Normal. ENDOCRINE: No weight gain; no weight loss. CVS: No chest pain. No PND, no orthopnea. Shortness of breath. No PND, no orthopnea. RESPIRATORY: Cough and congestion. No hemoptysis. GI: Nausea, Vomiting. Abdominal cramps. Diarrhea. No melena. : No hematuria. No polyuria. MUSCULOSKELETAL: No joint swelling. PSYCHIATRIC: Not anxious. No depression. No suicidal thoughts. No homicidal thoughts. SKIN: Intact, no open lesions. PAST MEDICAL HISTORY: Coronary artery disease status post stents Congestive heart failure Thoracic aortic aneurysm Permanent pacemaker Hypertension Headaches COPD Renal failure BPH Osteoarthritis Osteoporosis Continued Nicotine use PAST SURGICAL HISTORY: AAA repair Aortic bypass Knee scopes Anterior Cervical fusion Permanent pacemaker placed and removed Bypass surgery 2003 Tonsillectomy PERSONAL HISTORY: The patient does smoke, no alcohol and no drugs. Family history is significant for the cancers. MEDICATIONS: Nitrostat Lortab Aspirin Xanax Atorvastatin Hydrochlorothiazide Metoprolol Clopidogrel ALLERGIES: Promethazine PHYSICAL EXAMINATION: V/S: Blood pressure 128/100, respiratory rate 28, heart rate 95, saturation 93% on room air, Temperature 98.9. GENERAL: Cachetic very thin man lying in the bed in mild respiratory distress. HEENT: Atraumatic, normocephalic. No scleral icterus. NECK: Supple. No JVD, no bruit. No lymphadenopathy. No thyromegaly. HEART: S1, S2 normal. No murmur. Sinus tachy. No cyanosis or clubbing. No ascites. LUNGS: Decreased and basilar crackles. Expiratory wheeze is present. No rales or rhonchi. ABDOMEN: Soft, Discomfort all over. Bowel sounds are hyperactive. No CVA tenderness. No rigidity or guarding. EXTREMITIES: No cyanosis, clubbing or pedal edema. MUSCULOSKELETAL: Normal joints, no swelling. NEUROLOGIC: The patient is awake and alert and oriented times three. SKIN: Intact; no open lesions. Dry. LYMPHATIC: No lymph nodes palpable. LABS: WBC 6.97, hgb 14.8, hct 42.5, plt count 204, d-dimer 4,029, Sodium 141, potassium 3.9, chloride 100, bicarb 23, BUN 54 and creatinine 1.32, glucose 115 , AST 104. Urine 1+ protein, 1+ ketone and serology is negative. ASSESSMENT: 1. COPD exacerbation secondary to the bronchitis 2. Acute gastroenteritis 3. Acute renal failure 4. Dehydration 5. History of coronary artery disease 6. Congestive heart failure 7. Hypertension 8. Dyslipidemia 9. COPD PLAN: 1. Admit the patient to the regular floor 2. CBC and CMP today and daily 3. Cardiac enzymes and Troponin 4. Clear liquid diet 5. Zofran 6. Rocephin 1 gram daily 7. Plavix 8. Lovenox for the DVT prophylaxis 9. Continue home medication 10.Solu-Medrol 40mg Q 8 hours 11.Daily I&O's TIME SPENT: MORE THAN 70 minutes MTDD
--- NOTE | 2017-06-07 13:07 | PN ---
DATE OF SERVICE: 06/05/17 SUBJECTIVE: The patient was admitted with the acute gastroenteritis, Dehydration, renal failure, COPD exacerbation. The patient is laying in the bed and says that he is feeling some better. Still having cough and congestion. No diarrhea. Still has some discomfort in the belly. REVIEW OF SYSTEMS: CONSTITUTIONAL: No fever, no chills. HEENT: Normal. ENDOCRINE: No weight gain, no weight loss. CVS: No angina symptoms. No CHF symptoms. No palpitations. No atypical chest pain for CAD. No shortness of breath. No PND, no orthopnea. RESPIRATORY: No cough, no hemoptysis. GI: No nausea, no vomiting. No abdominal pain. : No hematuria. No polyuria. MUSCULOSKELETAL:. No joint swelling. PSYCHIATRIC: Not anxious. No depression. No suicidal thoughts. No homicidal thoughts. SKIN: Intact. No rash. PHYSICAL EXAMINATION: V/S: blood pressure 86/64, respiratory rate 12, heart rate 50, temperature 96.2 with saturation 92%. GENERAL: Cachetic man laying in the bed and not in any distress. HEENT: Normocephalic, atraumatic. Mucosa dry. Pallor positive. No icterus. NECK: Supple. No JVD, no carotid bruit. No lymphadenopathy. LUNGS: Decreased and basilar crackles with mild expiratory wheeze. No rales or rhonchi. HEART: S1, S2 normal. No S3. No murmur, gallop or regurgitation. ABDOMEN: Soft, nontender. Discomfort is present all over. Bowel sounds active. No rigidity. No rebound or guarding. No CVA tenderness. EXTREMITIES: No clubbing, cyanosis or pedal edema. MUSCULOSKELETAL: No joint swelling. NEUROLOGIC: Awake, alert, oriented times three. No focal deficit. LYMPHATIC: No lymph nodes palpable. SKIN: Intact. Dry. LABS: WBC 7.68,. hgb 11.4, hct 33.8, plt count 192, sodium 141, potassium 4.4, chloride 106, bicarb 22, BUN 14, creatinine 1.20, glucose 117. ASSESSMENT: 1. COPD exacerbation secondary to the bronchitis 2. Acute gastroenteritis 3. Acute renal failure from gastroenteritis 4. History fo Coronary artery disease 5. Congestive heart failure 6. Hypertension PLAN: 1. Continue the Rocephin 2. Lovenox for the DVT prophylaxis 3. Azithromycin 4. IV fluids 125ml per hour Will follow the patient in daily rounds. TIME SPENT: More than 35 minutes MTDD
--- NOTE | 2017-06-07 13:41 | RS.PTINEVL ---
Subjective - Patient information Date of Evaluation: 06/07/17 Date of Arrival on Unit: 06/04/17 Admitted From:: Home Living Arrangement Comments: Son and grandson lives with him. Home Environment: House Medical History: COPD Medical History Comments:: renal failure, [place] Surgical History: Cervical Spine, CABG, Other Surgical History Comments:: pacemaker, AAA, aortic bypass, arthroscopy Subjective Information/ Patient Comments:: pt states he is weak, "I let myself get too bad" pt admitted with nausea, vomiting, diarrhea - Level of function Prior to this admission, the patient could do the following:: Independent ADL's , Independent Ambulation Current Level of Function: Partially Dependent Current Equipment Used at Home: Nebs and oxygen Interventions - Objective Patient Orientation: Person, Place, Time Current Interventions: IV's, Oxygen, Telemetry Range of Motion - ROM Right Upper Extremity AROM: WFL's Left Upper Extremity AROM: WFL's Right Lower Extremity AROM: WFL's Left Lower Extremity AROM: WFL's Muscle Strength - Muscle Strength Right Upper Extremity Strength: Mild Weakness (shld flex 3+/5, elbow flex/ext 3+ /5) Left Upper Extremity Strength: Mild Weakness (shld flex 3+/5, elbow flex/ext 3+/ 5) Right Lower Extremity Strength: Mild Weakness (hip flex 3+/5, knee flex/ext 4-/5 , ankle DF/PF 4-5) Left Lower Extremity Strength: Mild Weakness (hip flex 3+/5, knee flex/ext 4-/5 , ankle Df/PF 4-/5) Sensation - Sensation Right Upper Extremity Sensation: Intact/Normal Left Upper Extremity Sensation: Intact/Normal Right Lower Extremity Sensation: Impaired Left Lower Extremity Sensation: Impaired Comments: Reports n/t B feet Palpation Palpation Findings: None/Normal Balance - Sitting Balance and Reactions Static Sitting Balance: Good Dynamic Sitting Balance: Fair Sitting Equilibrium Reactions: Delayed Left, Delayed Right Sitting Protective Reactions: Delayed Left, Delayed Right - Standing Balance and Reactions Static Standing Balance: Poor Dynamic Standing Balance: Poor Standing Equilibrium Reactions: Delayed Left, Delayed Right Standing Protective Reactions: Delayed Left, Delayed Right - Comments Balance Assessment Comments: Tinetti not assessed, O2 sat dropped to 86% Functional Mobility - Bed Mobility Rolling R/L: CGA Scooting: Min Assist Supine to Sit: Min Assist - Transfers Sit to Stand: Min Assist Stand to Sit: Min Assist - Safety Awareness Safety Awareness: Fair Ambulation - Ambulation Assistive Device Used: Rolling Walker Orthotic/Prosthetic Device: No Distance: 120ft Assistance needed with Ambulation: CGA Quality of Ambulation: CGA x 1 +1 for IV pole and O2 Gait Deviations: Forward posture, Short stride Ambulation Comments: pt amb with decreased step length, flexed posture, with verbal cues for placement of rwx. Factors Affecting Ambulation: Decreased Balance, Breathing/O2 Saturation, Decreased Safety, Limited Endurance (pt O2 sat while amb 98%, after amb 86%) Treatment time - Time with patient Total treatment time: 30 Patient Education - Education Patient Education: Activity Modification, Education of Plan of Care Teaching Recipient: Patient Teaching Methods: Discussion, Demonstration Comments: discussed POC and pt goal to return home as independent as possible. Assessment - Assessment Problem List:: Decreased level of function, Requires training/education, Decreased safety/Risk of falls, Weakness Rehab Potential: Good Further Therapy Indicated?: Yes Comments: Feel pt would benefit from skilled PT for therex for LE strengthening , balance activities to improve functional mobility and decrease risk of falls. Short Term Goals GOAL #1: pt demonstrate independence with rolling and scooting in bed. Goal to be met by: 06/10/17 GOAL #2: pt transfer sup to/from sit to/from stand independently. Goal to be met by: 06/10/17 GOAL #3: pt amb with rwx 150ft with SBA with no loss of balance Goal to be met by: 06/10/17 Platform Beater Goals GOAL #1: pt with improved dyn stand balance as noted by tinetti score of 22/28 Goal to be met by: 06/12/17 GOAL #2: pt with improved strength BLE 4 to 4+/5 and independent with HEP Goal to be met by: 06/12/17 GOAL #3: pt amb with/without AD functional distances independently with no LOB Goal to be met by: 06/12/17 Plan Plan of Care: Therapeutic EX, Therapeutic Activity Other:: gait training Frequency of Treatment: 1-2 X day, as tolerated Duration of Treatment: 1 Week Anticipated Discharge Destination: Home
--- NOTE | 2017-06-07 15:03 | PN ---
DATE OF SERVICE: 06/06/17 SUBJECTIVE: The patient was admitted with acute dehydration, gastroenteritis and COPD exacerbation. He is receiving the fluids at 125ml per hour and still the urine output is very minimal. Hypotensive right now. Blood pressure is around 92 systolic and 83 systolic. Says that he had one bought of the diarrhea yesterday night. Some discomfort in the belly. REVIEW OF SYSTEMS: CONSTITUTIONAL: No fever, no chills. HEENT: Normal. ENDOCRINE: No weight gain, no weight loss. CVS: No angina symptoms. No CHF symptoms. No palpitations. No atypical chest pain for CAD. No shortness of breath. No PND, no orthopnea. RESPIRATORY: No cough, no hemoptysis. GI: No nausea, no vomiting. No abdominal pain. : No hematuria. No polyuria. MUSCULOSKELETAL:. No joint swelling. PSYCHIATRIC: Not anxious. No depression. No suicidal thoughts. No homicidal thoughts. SKIN: Intact. No rash. PHYSICAL EXAMINATION: V/S: Blood pressure 92/67, respiratory rate 16, heart rate 59, temperature 96.5 with saturation 98% on 2 liters. HEENT: Normocephalic, atraumatic. Mucosa dry. Pallor positive. No icterus. NECK: Supple. No JVD, no carotid bruit. No lymphadenopathy. LUNGS: Decreased and basilar crackles. No rales or rhonchi. HEART: S1, S2 normal. No S3. No murmur, gallop or regurgitation. ABDOMEN: Soft, discomfort all over the belly. Bowel sounds active. No rigidity. No rebound or guarding. No CVA tenderness. EXTREMITIES: No clubbing, cyanosis or pedal edema. MUSCULOSKELETAL: No joint swelling. NEUROLOGIC: Awake, alert, oriented times three. No focal deficit. LYMPHATIC: No lymph nodes palpable. SKIN: Intact. LABS: WBC 7.75, hgb 10.8, hct 32.8, plt count 250, sodium 137, potassium 3.8, chloride 107, bicarb 21, BUN 43, creatinine 1.43 ASSESSMENT: 1. Acute renal failure 2. Gastroenteritis, still has some diarrhea 3. COPD exacerbation and bronchitis 4. Cachexia 5. Coronary artery disease status post stent placement 6. Bypass surgery 7. Elevated D-Dimer level PLAN: 1. Will get CT of abdomen and pelvis 2. Continue IV fluids at 125ml per hour 3. DUO NEBS 4. Solu-Medrol 40 Q 8 hours 5. Hydrocodone 6. Lovenox TIME SPENT: More than 35 minutes MTDD
--- NOTE | 2017-06-07 15:23 | DI ---
EXAM: CHEST FRONTAL AND LATERAL VIEWS HISTORY: Cough and congestion. COMPARISON: 06/04/2017 FINDINGS: Heart size is within normal limits. There is diffuse, chronic appearing interstitial accen tuation. Lungs are hyperinflated and there is relative lucency of the lung zones suggesting emphysem a. No acute infiltrates are seen. No vascular congestion. There is no consolidation, visible pleur al fluid or pneumothorax. Bones reveal no acute fracture. Stabilization hardware of the lower cervic al spine. IMPRESSION: Chronic obstructive pulmonary disease is suspected radiographically, correlate clinically. No acute infiltrates identified.
[2017-06-07] MEDS: ROCEPHIN 1 GM in SODIUM CHLORIDE 50 ML IV SCH (20:31)
[2017-06-08] MEDS: SOLU-MEDROL 40 MG IVP SCH ×3 (05:01→21:05)
[2017-06-08] MEDS: SODIUM CHLORIDE 1,000 ML IV SCH ×2 (07:13→09:27)
[2017-06-08] MEDS: LOVENOX SUBCUT SCH (08:21)
[2017-06-08] MEDS: PLAVIX PO SCH (08:21)
[2017-06-08] MEDS: MUCINEX PO SCH ×2 (08:21→21:05)
[2017-06-08] MEDS: XANAX PO SCH ×2 (08:21→13:27)
[2017-06-08] MEDS: LIPITOR PO SCH (08:21)
[2017-06-08] MEDS: ASPIRIN EC PO SCH (08:22)
[2017-06-08] MEDS: NORCO 10-325 PO SCH ×3 (08:22→21:05)
[2017-06-08] MEDS ORDERED: LASIX IVP STA ×2 (08:41→22:05)
--- NOTE | 2017-06-08 08:57 | PN ---
DATE OF SERVICE: 06/07/17 SUBJECTIVE: The patient was admitted with COPD exacerbation, acute gastroenteritis and severe dehydration. BUN and creatinine is gradually getting better. REVIEW OF SYSTEMS: CONSTITUTIONAL: No fever, no chills. HEENT: Normal. ENDOCRINE: No weight gain, no weight loss. CVS: No angina symptoms. No CHF symptoms. No palpitations. No atypical chest pain for CAD. No shortness of breath. No PND, no orthopnea. RESPIRATORY: Cough and congestion, no hemoptysis. GI: No nausea, no vomiting. No abdominal pain. : No hematuria. No polyuria. MUSCULOSKELETAL:. No joint swelling. PSYCHIATRIC: Not anxious. No depression. No suicidal thoughts. No homicidal thoughts. SKIN: Intact. No rash. PHYSICAL EXAMINATION: V/S: Blood pressure 106/66, respiratory rate 24, heart rate 54, temperature 97 with saturation 90 on the 2 liters. GENERAL: Cachetic man laying in a bed not in any distress. HEENT: Normocephalic, atraumatic. Mucosa dry. Pallor positive. No icterus. NECK: Supple. No JVD, no carotid bruit. No lymphadenopathy. LUNGS: Decreased and basilar crackles. Expiratory wheezing is present. No rales or rhonchi. HEART: S1, S2 normal. No S3. No murmur, gallop or regurgitation. ABDOMEN: Soft, nontender. Bowel sounds active. No rigidity. No rebound or guarding. No CVA tenderness. EXTREMITIES: No clubbing, cyanosis or pedal edema. MUSCULOSKELETAL: No joint swelling. NEUROLOGIC: Awake, alert, oriented times three. No focal deficit. LYMPHATIC: No lymph nodes palpable. SKIN: Intact. LABS: WBC 13.42, hgb 9.7, hct 29.9, plt count 296, sodium 137, potassium 4.3, chloride 111, bicarb 16, BUN 35, creatinine 1.12 ASSESSMENT: 1. COPD exacerbation secondary to the bronchitis 2. Elevated D-Dimer 3. Acute gastroenteritis 4. Acute renal failure; BUN and creatinine is getting better 5. History of cachexia 6. Weight loss 7. Coronary artery disease; status post stent placement PLAN: 1. Continue the IV fluids 2. Rocephin 3. Azithromycin 4. DUO NEBS 5. Lovenox for the DVT prophylaxis Will follow the patient in daily rounds. TIME SPENT: More than 35 minutes MTDD
--- NOTE | 2017-06-08 10:09 | CT ---
EXAM: CT chest without contrast. HISTORY: Chest congestive, unresponsive to treatment. COMPARISON: Radiograph [address] 11/09/2016. TECHNIQUE: Multiple axial images of the chest were obtained without intravenous contrast. Images we re reformatted in the sagittal and coronal planes. FINDINGS: Calcified mediastinal lymph nodes present in the heart size is normal. There is no perica rdial effusion. There is small pleural effusions. Bronchial thickening and centrilobular nodules noted bilaterally. Calcified granulomatous changes noted.. No pneumothorax identified. Limited images of the upper abdomen demonstrate no acute finding. There has been previous ACDF. IMPRESSION: 1. Bilateral bronchial thickening and centrilobular nodules consistent with airways infection/inflam mation. Follow-up in 3 months recommended for reassessment. 2. Small pleural effusions.
[2017-06-08] MEDS: DUONEB NEB SCH ×6 (14:05→21:38)
[2017-06-08] MEDS: ROCEPHIN 1 GM in SODIUM CHLORIDE 50 ML IV SCH (21:05)
[2017-06-08] MEDS ORDERED: ATIVAN IVP STA (22:06)
[2017-06-09] MEDS: DUONEB NEB SCH ×2 (01:01→04:54)
[2017-06-09] MEDS: SOLU-MEDROL 40 MG IVP SCH ×3 (06:10→20:33)
[2017-06-09] MEDS: SODIUM CHLORIDE 1,000 ML IV SCH ×2 (08:19→10:23)
[2017-06-09] MEDS: LIPITOR PO SCH (08:25)
[2017-06-09] MEDS: PLAVIX PO SCH (08:25)
[2017-06-09] MEDS: XANAX PO SCH ×2 (08:25→11:40)
[2017-06-09] MEDS ORDERED: VANCOMYCIN 1 GM in SODIUM CHLORIDE 250 ML IV STA (08:26)
[2017-06-09] MEDS: ASPIRIN EC PO SCH (08:26)
[2017-06-09] MEDS: NORCO 10-325 PO SCH ×3 (08:26→20:32)
[2017-06-09] MEDS: LOVENOX SUBCUT SCH (08:26)
[2017-06-09] MEDS: MUCINEX PO SCH ×2 (08:26→20:34)
[2017-06-09] MEDS: LIBRIUM PO SCH ×2 (10:22→20:36)
[2017-06-09] MEDS: XOPENEX 1.25 MG NEB SCH ×3 (11:22→23:05)
[2017-06-09] MEDS: ZOSYN 2.25 GM 2.25 GM in SODIUM CHLORIDE 100 ML IV SCH ×2 (12:22→18:17)
[2017-06-09] MEDS ORDERED: ZOSYN 3.375 GM 3.375 GM in SODIUM CHLORIDE 100 ML IV SCH (13:00)
--- NOTE | 2017-06-09 14:42 | DI ---
EXAM: Chest one view, frontal view only. HISTORY: Cough. COMPARISON: 1 day prior. FINDINGS: The heart size is normal. There is no pulmonary vascular congestion. Calcified granuloma tous changes are present. Otherwise, the lungs are clear. No pleural effusion or pneumothorax is se en. No acute osseous abnormality is identified. ACDF changes noted. IMPRESSION: No acute cardiopulmonary process. Refer to chest CT report for 1 day prior for details.
[2017-06-09 16:04] LABS: ABG BASE EXCESS -1 (-2.0-2.0); ABG HCO3 21.8 (22.0-26.0); ABG PCO2 25.4 mmHg (35-45); ABG PH 7.542 (7.35-7.45); ABG TCO2 23 (22.0-28.0)
[2017-06-09 16:06] LABS: HEMATOCRIT 25.9 % (42.0-52.0); HEMOGLOBIN 8.8 g/dl (14.0-18.0); IMMATURE GRANULOCYTE % (AUTO) 0.4 % (0.0-5.0); LYMPHOCYTES # (AUTO) 0.3 K/uL (0.60-3.4); LYMPHOCYTES % (AUTO) 2.7 (10.0-50.0); MEAN CORPUSCULAR HEMOGLOBIN 29.5 pg (27.0-31.0); MEAN CORPUSCULAR VOLUME 86.9 fl (80.0-94.0); MONOCYTES # (AUTO) 0.5 K/uL (0.4-2.0); MONOCYTES % (AUTO) 4.8 (0-10); NEUTROPHILS % (AUTO) 92.1; PLATELET COUNT 363 10^3/uL (140-440); RED BLOOD COUNT 2.98 10^6/ul (4.70-6.10)
[2017-06-09 16:21] LABS: ANION GAP 11.6; BUN/CREATININE RATIO 29.03; CALCIUM 8.5 mg/dL (8.2-10.2); CREATININE 0.93 mg/dL (0.60-1.10); POTASSIUM 3.6 mmol/L (3.5-5.1)
[2017-06-09] MEDS ORDERED: LASIX IVP STA (17:05)
--- NOTE | 2017-06-09 18:46 | CT ---
Exam: CT angiogram of the thorax using pulmonary embolism protocol. linical indication: Respiratory distress. Comparison is made to the prior CT dated 04/08/2017. TECHNIQUE: Axial IV contrast enhanced CT images of the thorax were obtained using pulmonary embolism protocol. Coronal and sagittal reformats were performed. 3-D reconstruction of the pulmonary arter ial tree was performed. In addition, maximal projection maximum intensity pixel multi planar imaging of the pulmonary arterial tree was performed for increased diagnostic interpretation. Findings: There are no pulmonary emboli. There is some bibasilar atelectatic changes. There are minimal areas of anterior bilateral upper lobe ground-glass opacities which are nonspecific . Note is also made of minimal bilateral ill-defined nodular opacities suggesting infectious/inflamm atory etiology. The remainder the pulmonary parenchyma is unremarkable. There are tiny bilateral pleural effusions. There are no enlarged axillary, hilar or mediastinal lymph nodes, by size criteria. There is a right-sided simple renal cortical cyst. The remainder the visualized portions of the uppe r abdomen are unremarkable. There is evidence of prior anterior cervical fusion. The remainder the visualized bony structures ar e unremarkable. Impression: 1. No pulmonary emboli. 2. Subtle bilateral pulmonary parenchymal changes as described above, suggesting infectious/inflamma tory etiology.
--- NOTE | 2017-06-09 18:52 | CT ---
Exam: CT abdomen and pelvis without IV contrast. Clinical indication: Anemia and shortness of breath. TECHNIQUE: Axial unenhanced CT images of the abdomen and pelvis were obtained followed by coronal an d sagittal reformats. Comparison is made to the prior study dated 06/06/2017. Findings: The thorax was dictated separately. There is no free intra-abdominal gas. There is a trace of free fluid within the pelvis, which is not a normal finding in a male. The liver, gallbladder, adrenals, pancreas, and kidneys are grossly unremarkable, given the limitatio ns of an unenhanced CT. There are incidental punctate splenic calcifications consistent with old healed granulomatous disease . There is evidence of prior aortobifemoral bypass graft. There are no definite enlarged abdominal or pelvic lymph nodes, by size criteria. There is minimal intra-abdominal fat which makes separation loops of bowel difficult. The bowel is g rossly unremarkable. The visualized bony structures are unremarkable for the patient's age. Impression: 1. Significantly limited CT due to lack of intra-abdominal fat, IV contrast, and oral contrast. 2. Trace of free fluid within the pelvis, which is not a normal finding in a male. 3. Otherwise grossly unremarkable CT of the abdomen and pelvis. In future if doing a CT of the thorax with IV contrast the CT of the abdomen and pelvis could be perf ormed immediately following and be better diagnostic quality.
[2017-06-09] MEDS ORDERED: LOVENOX SUBCUT SCH (21:00)
[2017-06-10] MEDS: ZOSYN 2.25 GM 2.25 GM in SODIUM CHLORIDE 100 ML IV SCH ×5 (00:42→23:14)
[2017-06-10 04:50] LABS: ABG BASE EXCESS 1 (-2.0-2.0); ABG HCO3 24.9 (22.0-26.0); ABG PH 7.485 (7.35-7.45); ABG TCO2 26 (22.0-28.0)
[2017-06-10] MEDS: MORPHINE 2 MG/ML SYRINGE IVP PRN (04:52)
[2017-06-10] MEDS: XOPENEX 1.25 MG NEB SCH ×4 (04:55→23:16)
[2017-06-10 05:17] LABS: HEMATOCRIT 26.1 % (42.0-52.0); HEMOGLOBIN 8.9 g/dl (14.0-18.0); IMMATURE GRANULOCYTE % (AUTO) 0.6 % (0.0-5.0); LYMPHOCYTES # (AUTO) 0.3 K/uL (0.60-3.4); LYMPHOCYTES % (AUTO) 2.4 (10.0-50.0); MEAN CORPUSCULAR HEMOGLOBIN 29.7 pg (27.0-31.0); MEAN CORPUSCULAR HGB CONC 34.1 (31.8-35.4); MONOCYTES # (AUTO) 0.4 K/uL (0.4-2.0); MONOCYTES % (AUTO) 3.7 (0-10); NEUTROPHILS % (AUTO) 93.3; PLATELET COUNT 370 10^3/uL (140-440); WHITE BLOOD COUNT 10.77 K/ul (4.2-10.2)
[2017-06-10 05:39] LABS: ANION GAP 14.5; BUN/CREATININE RATIO 25.24; CALCIUM 8.5 mg/dL (8.2-10.2); CREATININE 1.03 mg/dL (0.60-1.10); POTASSIUM 3.5 mmol/L (3.5-5.1)
[2017-06-10] MEDS: SOLU-MEDROL 40 MG IVP SCH ×3 (05:39→20:18)
[2017-06-10] MEDS: XANAX PO SCH ×2 (09:58→12:00)
[2017-06-10] MEDS: ASPIRIN EC PO SCH (09:58)
[2017-06-10] MEDS: LIBRIUM PO SCH ×2 (09:58→20:12)
[2017-06-10] MEDS: NORCO 10-325 PO SCH ×3 (09:58→20:12)
[2017-06-10] MEDS: LIPITOR PO SCH (09:58)
[2017-06-10] MEDS: LOVENOX SUBCUT SCH (09:59)
[2017-06-10] MEDS: PLAVIX PO SCH (09:59)
[2017-06-10] MEDS: MUCINEX PO SCH ×2 (09:59→20:12)
[2017-06-11] MEDS: SOLU-MEDROL 40 MG IVP SCH ×3 (05:06→20:33)
[2017-06-11] MEDS: ZOSYN 2.25 GM 2.25 GM in SODIUM CHLORIDE 100 ML IV SCH ×4 (05:06→23:30)
[2017-06-11] MEDS: XOPENEX 1.25 MG NEB SCH ×4 (05:13→23:01)
[2017-06-11 05:32] LABS: BASOPHILS % (AUTO) 0.1 % (0.0-3.0); HEMOGLOBIN 8.9 g/dl (14.0-18.0); IMMATURE GRANULOCYTE % (AUTO) 0.7 % (0.0-5.0); LYMPHOCYTES # (AUTO) 0.3 K/uL (0.60-3.4); LYMPHOCYTES % (AUTO) 3.1 (10.0-50.0); MEAN CORPUSCULAR HEMOGLOBIN 29.9 pg (27.0-31.0); MEAN CORPUSCULAR HGB CONC 34.2 (31.8-35.4); MEAN CORPUSCULAR VOLUME 87.2 fl (80.0-94.0); MONOCYTES # (AUTO) 0.4 K/uL (0.4-2.0); NEUTROPHILS # (AUTO) 9.7 K/ul (2.0-6.9); NEUTROPHILS % (AUTO) 92.1; PLATELET COUNT 357 10^3/uL (140-440); RED BLOOD COUNT 2.98 10^6/ul (4.70-6.10); WHITE BLOOD COUNT 10.56 K/ul (4.2-10.2)
[2017-06-11 05:50] LABS: ABG PCO2 43.4 mmHg (35-45); ABG PH 7.434 (7.35-7.45)
[2017-06-11 05:51] LABS: ABG BASE EXCESS 5 (-2.0-2.0); ABG HCO3 29 (22.0-26.0); ABG TCO2 30 (22.0-28.0)
[2017-06-11 05:58] LABS: ANION GAP 12.1; BUN/CREATININE RATIO 23.91; CALCIUM 8.4 mg/dL (8.2-10.2); CREATININE 0.92 mg/dL (0.60-1.10); POTASSIUM 3.1 mmol/L (3.5-5.1)
[2017-06-11] MEDS: XANAX PO SCH ×2 (08:36→13:08)
[2017-06-11] MEDS: LIPITOR PO SCH (08:36)
[2017-06-11] MEDS: PLAVIX PO SCH (08:37)
[2017-06-11] MEDS: LOVENOX SUBCUT SCH (08:37)
[2017-06-11] MEDS: MUCINEX PO SCH ×2 (08:37→20:32)
[2017-06-11] MEDS: NORCO 10-325 PO SCH ×3 (08:37→20:32)
[2017-06-11] MEDS: LIBRIUM PO SCH ×2 (08:37→20:32)
[2017-06-11] MEDS: ASPIRIN EC PO SCH (08:40)
[2017-06-11 08:48] LABS: IMMATURE RETIC FRACTION 12.9; RETICULOCYTE % 1.17 %
[2017-06-11] MEDS ORDERED: K-DUR PO STA (08:57)
[2017-06-11] MEDS: PROTONIX IV 40 MG in SODIUM CHLORIDE 100 ML IV SCH ×2 (09:13→20:33)
[2017-06-11 09:36] LABS: FERRITIN 717.08 ng/mL (21.81-274.66); FOLATE 7.9 ng/mL (3.1-20.5)
--- NOTE | 2017-06-11 13:20 | PN ---
DATE OF SERVICE: 06/08/17 SUBJECTIVE: The patient is sitting in the bed not in any distress and some shortness of breath is present. REVIEW OF SYSTEMS: CONSTITUTIONAL: No fever, no chills. HEENT: Normal. ENDOCRINE: No weight gain, no weight loss. CVS: No angina symptoms. No CHF symptoms. No palpitations. No atypical chest pain for CAD. No shortness of breath. No PND, no orthopnea. RESPIRATORY: Cough, no hemoptysis. GI: No nausea, no vomiting. No abdominal pain. : No hematuria. No polyuria. MUSCULOSKELETAL:. No joint swelling. PSYCHIATRIC: Not anxious. No depression. No suicidal thoughts. No homicidal thoughts. SKIN: Intact. No rash. PHYSICAL EXAMINATION: V/S: Blood pressure 122/82, respiratory rate 24, heart rate 78, saturation 94 on 2 liter and temperature 97.5. HEENT: Normocephalic, atraumatic. Mucosa dry. Pallor positive. No icterus. NECK: Supple. No JVD, no carotid bruit. No lymphadenopathy. LUNGS: Mild distress in the respiratory breathing. Decreased and basilar crackles with mild expiratory wheeze. No rales or rhonchi. HEART: S1, S2 normal. No S3. No murmur, gallop or regurgitation. ABDOMEN: Soft, nontender. Bowel sounds active. No rigidity. No rebound or guarding. No CVA tenderness. EXTREMITIES: No clubbing, cyanosis or pedal edema. MUSCULOSKELETAL: No joint swelling. NEUROLOGIC: Awake, alert, oriented times three. No focal deficit. LYMPHATIC: No lymph nodes palpable. SKIN: Intact. LABS: WBC 13.42, hgb 9.7, hct 29.9. plt count 296, sodium 137, potassium 4.3, chloride 111, bicarb 16, BUN 35 and creatinine 1.12. ASSESSMENT: 1. COPD exacerbation secondary to the bronchitis 2. Mild respiratory distress at this time 3. Status post acute renal failure 4. Gastroenteritis which is better 5. Coronary artery disease 6. Congestive heart failure 7. Dyslipidemia PLAN: 1. Will do CT chest 2. Continue the Rocephin 3. DUO NEBS 4. Solu-Medrol 5. Daily I&O's Will follow the patient in daily rounds. TIME SPENT: More than 35 minutes MTDD
--- NOTE | 2017-06-11 13:49 | PN ---
DATE OF SERVICE: 06/09/17 SUBJECTIVE: The patient is in respiratory distress. Had to put the BIPAP on the patient which did help him. The patient is a DNR and don't want to change the DNR status at this time. Off of the CPAP right now. CT scan from yesterday did show the pulmonary congestion and early infection or inflammatory, small pleural effusions were seen. The patient is on the Zosyn and the Vancomycin. We will stop the IV fluids. Get the Lasix and the Morphine did make him feel a little bit better but still he is in respiratory distress. REVIEW OF SYSTEMS: CONSTITUTIONAL: No fever, no chills. HEENT: Normal. ENDOCRINE: No weight gain, no weight loss. CVS: No angina symptoms. No CHF symptoms. No palpitations. No atypical chest pain for CAD. No shortness of breath. No PND, no orthopnea. RESPIRATORY: No cough, no hemoptysis. GI: No nausea, no vomiting. No abdominal pain. : No hematuria. No polyuria. MUSCULOSKELETAL:. No joint swelling. PSYCHIATRIC: Not anxious. No depression. No suicidal thoughts. No homicidal thoughts. SKIN: Intact. No rash. PHYSICAL EXAMINATION: V/S: Blood pressure 110/70, respiratory rate 22, heart rate 104, saturation 84 on the 4 liters, temperature 98. HEENT: Normocephalic, atraumatic. Mucosa dry. Pallor positive. No Icterus. NECK: Supple. No JVD, no carotid bruit. No lymphadenopathy. LUNGS: Respiratory distress. Decreased and basilar crackles. No rales or rhonchi. HEART: S1, S2 normal. No S3. No murmur, gallop or regurgitation. ABDOMEN: Soft, nontender. Bowel sounds active. No rigidity. No rebound or guarding. No CVA tenderness. EXTREMITIES: No clubbing, cyanosis or pedal edema. Anasarca present. MUSCULOSKELETAL: No joint swelling. NEUROLOGIC: Awake, alert, oriented times three. No focal deficit. LYMPHATIC: No lymph nodes palpable. SKIN: Intact. LABS: WBC 9.80, hgb 8.8, hct 25.9, plt count 363, sodium 144, potassium 3.6, chloride 112, bicarb 24, BUN 27, creatinine 0.98. BNP 1,000. ASSESSMENT: 1. Acute respiratory failure secondary to pneumonia and fluid overload 2. Status post diarrhea 3. Hypoxemic respiratory failure 4. Dehydration which is improved 5. Acute renal failure which is better 6. Coronary artery disease 7. Congestive heart failure PLAN: 1. Chest x-ray 2. Will increase the Lovenox twice a day 40mg 3. ABG 4. Morphine PRN Will follow the daily rounds. TIME SPENT: More than 55 minutes which is critical care time. MTDD
--- NOTE | 2017-06-11 16:06 | CT ---
EXAM: CT of the abdomen pelvis without contrast History: Lower abdominal pain. Comparison: CT abdomen pelvis 06/09/2017 Technique: Multiplanar CT images through the abdomen pelvis were obtained without the administration of IV contrast Findings: Trace bilateral pleural effusions. Subsegmental atelectasis seen within the lung bases. The visualized osseous structures unchanged with no acute osseous abnormalities identified. Atherosclerotic vascular calcifications and evidence of previous aortic repair. Bilateral common cecilia ac stents. Right renal cyst again identified. Nonspecific bilateral perinephric stranding. Small le ft renal cyst again identified. No hydronephrosis. Gallbladder is not well distended. The liver or splenic lesions. No dilated loops of bowel. Contrast seen within the bladder from the recent IV co ntrast enhanced study. There is body wall edema and some mesenteric edema. Trace pelvic fluid. No perirectal inflammation. Prostate is not enlarged. Colonic diverticulosis. Scattered colonic stool . The appendix is not seen. No free air. Impression: 1. Nonspecific bilateral perinephric stranding. Correlate with urinalysis for possible urinary trac t infection. No hydronephrosis. 2. Small simple bilateral renal cysts. 3. Colonic diverticulosis. 4. Body wall edema. 5. Trace pelvic fluid. 6. Atherosclerotic vascular disease. 7. Small bilateral pleural effusions. 8. Colonic diverticulosis.
[2017-06-11 17:06] LABS: BILIRUBIN,URINE Negative (NEGATIVE); KETONES,URINE Trace (NEGATIVE); LEUKOCYTE ESTERASE ,URINE Negative (NEGATIVE); NITRITE,URINE Negative (NEGATIVE); PH,URINE 6.5 (5-9); PROTEIN,URINE Negative (NEGATIVE); URINE, BLOOD Trace-lysed (NEGATIVE)
[2017-06-11 17:07] LABS: ADD URINE MICROSCOPIC YES
[2017-06-12] MEDS: MORPHINE 2 MG/ML SYRINGE IVP PRN (04:39)
[2017-06-12] MEDS: SOLU-MEDROL 40 MG IVP SCH ×3 (04:39→20:55)
[2017-06-12] MEDS: ZOSYN 2.25 GM 2.25 GM in SODIUM CHLORIDE 100 ML IV SCH ×3 (05:01→17:38)
[2017-06-12 05:05] LABS: ABG BASE EXCESS 6 (-2.0-2.0); ABG HCO3 28.9 (22.0-26.0); ABG TCO2 30 (22.0-28.0)
[2017-06-12 05:07] LABS: HEMATOCRIT 25.8 % (42.0-52.0); HEMOGLOBIN 8.6 g/dl (14.0-18.0); IMMATURE GRANULOCYTE % (AUTO) 0.8 % (0.0-5.0); LYMPHOCYTES # (AUTO) 0.4 K/uL (0.60-3.4); LYMPHOCYTES % (AUTO) 4.4 (10.0-50.0); MEAN CORPUSCULAR HEMOGLOBIN 29.2 pg (27.0-31.0); MEAN CORPUSCULAR HGB CONC 33.3 (31.8-35.4); MEAN CORPUSCULAR VOLUME 87.5 fl (80.0-94.0); MONOCYTES # (AUTO) 0.4 K/uL (0.4-2.0); MONOCYTES % (AUTO) 4.6 (0-10); NEUTROPHILS # (AUTO) 8.4 K/ul (2.0-6.9); NEUTROPHILS % (AUTO) 90.2; PLATELET COUNT 304 10^3/uL (140-440); RED BLOOD COUNT 2.95 10^6/ul (4.70-6.10); WHITE BLOOD COUNT 9.27 K/ul (4.2-10.2)
[2017-06-12] MEDS: XOPENEX 1.25 MG NEB SCH ×4 (05:12→22:50)
[2017-06-12 05:24] LABS: BUN/CREATININE RATIO 18.47; CALCIUM 8.2 mg/dL (8.2-10.2); CREATININE 0.92 mg/dL (0.60-1.10)
[2017-06-12] MEDS: PROTONIX IV 40 MG in SODIUM CHLORIDE 100 ML IV SCH ×2 (08:44→20:54)
[2017-06-12] MEDS: MUCINEX PO SCH ×2 (08:53→20:54)
[2017-06-12] MEDS: PLAVIX PO SCH (08:54)
[2017-06-12] MEDS: LIPITOR PO SCH (08:54)
[2017-06-12] MEDS: LIBRIUM PO SCH ×2 (08:54→20:54)
[2017-06-12] MEDS: NORCO 10-325 PO SCH ×3 (08:54→20:54)
[2017-06-12] MEDS: LOVENOX SUBCUT SCH (08:54)
[2017-06-12] MEDS: XANAX PO SCH ×2 (08:54→12:46)
[2017-06-13] MEDS: ZOSYN 2.25 GM 2.25 GM in SODIUM CHLORIDE 100 ML IV SCH ×2 (00:43→05:31)
[2017-06-13] MEDS: XOPENEX 1.25 MG NEB SCH ×4 (04:57→22:36)
[2017-06-13] MEDS: SOLU-MEDROL 40 MG IVP SCH ×3 (05:31→20:27)
[2017-06-13 06:11] LABS: BASOPHILS % (AUTO) 0.1 % (0.0-3.0); HEMOGLOBIN 8.6 g/dl (14.0-18.0); LYMPHOCYTES # (AUTO) 0.5 K/uL (0.60-3.4); MEAN CORPUSCULAR HEMOGLOBIN 29.4 pg (27.0-31.0); MEAN CORPUSCULAR HGB CONC 33.1 (31.8-35.4); MEAN CORPUSCULAR VOLUME 88.7 fl (80.0-94.0); MONOCYTES # (AUTO) 0.4 K/uL (0.4-2.0); MONOCYTES % (AUTO) 3.6 (0-10); NEUTROPHILS # (AUTO) 9.1 K/ul (2.0-6.9); NEUTROPHILS % (AUTO) 90.3; PLATELET COUNT 271 10^3/uL (140-440); RED BLOOD COUNT 2.93 10^6/ul (4.70-6.10); WHITE BLOOD COUNT 10.04 K/ul (4.2-10.2)
[2017-06-13 06:32] LABS: BUN/CREATININE RATIO 15.9; CALCIUM 8.3 mg/dL (8.2-10.2); CREATININE 0.88 mg/dL (0.60-1.10)
[2017-06-13] MEDS: NORCO 10-325 PO SCH ×3 (09:17→20:27)
[2017-06-13] MEDS: XANAX PO SCH ×2 (09:17→13:05)
[2017-06-13] MEDS: LIBRIUM PO SCH ×2 (09:17→20:27)
[2017-06-13] MEDS: MUCINEX PO SCH ×2 (09:18→20:27)
[2017-06-13] MEDS: LIPITOR PO SCH (09:18)
[2017-06-13] MEDS: LOVENOX SUBCUT SCH (09:18)
[2017-06-13] MEDS: PLAVIX PO SCH (09:18)
[2017-06-13] MEDS: PROTONIX IV 40 MG in SODIUM CHLORIDE 100 ML IV SCH ×2 (09:18→20:28)
[2017-06-13] MEDS: ZOSYN 3.375 GM 3.375 GM in SODIUM CHLORIDE 100 ML IV SCH ×2 (13:06→18:09)
[2017-06-14] MEDS: ZOSYN 3.375 GM 3.375 GM in SODIUM CHLORIDE 100 ML IV SCH ×4 (00:56→17:57)
[2017-06-14] MEDS: XOPENEX 1.25 MG NEB SCH ×4 (04:56→23:27)
[2017-06-14 05:30] LABS: BASOPHILS % (AUTO) 0.1 % (0.0-3.0); HEMATOCRIT 25.8 % (42.0-52.0); HEMOGLOBIN 8.3 g/dl (14.0-18.0); IMMATURE GRANULOCYTE % (AUTO) 1.1 % (0.0-5.0); LYMPHOCYTES # (AUTO) 0.5 K/uL (0.60-3.4); MEAN CORPUSCULAR HEMOGLOBIN 29.3 pg (27.0-31.0); MEAN CORPUSCULAR HGB CONC 32.2 (31.8-35.4); MEAN CORPUSCULAR VOLUME 91.2 fl (80.0-94.0); MONOCYTES # (AUTO) 0.4 K/uL (0.4-2.0); MONOCYTES % (AUTO) 3.6 (0-10); NEUTROPHILS # (AUTO) 10.6 K/ul (2.0-6.9); NEUTROPHILS % (AUTO) 91.2; PLATELET COUNT 230 10^3/uL (140-440); RED BLOOD COUNT 2.83 10^6/ul (4.70-6.10)
[2017-06-14 05:58] LABS: ANION GAP 10.3; BUN/CREATININE RATIO 15.15; CALCIUM 8.2 mg/dL (8.2-10.2); CREATININE 0.99 mg/dL (0.60-1.10); POTASSIUM 4.3 mmol/L (3.5-5.1)
[2017-06-14] MEDS: SOLU-MEDROL 40 MG IVP SCH ×3 (06:22→21:20)
--- NOTE | 2017-06-14 08:23 | PN ---
DATE OF SERVICE: 06/10/17 SUBJECTIVE: The patient was admitted with acute renal failure and respiratory failure. The patient went into the respiratory distress. The patient is a DNR refusing to have an intubation. The patient being over night on BIPAP and CPAP which was helping better. Right now the patient is on the BIPAP and says that he is feeling some better. REVIEW OF SYSTEMS: CONSTITUTIONAL: No fever, no chills. HEENT: Normal. ENDOCRINE: No weight gain, no weight loss. CVS: No angina symptoms. No CHF symptoms. No palpitations. No atypical chest pain for CAD. No shortness of breath. No PND, no orthopnea. RESPIRATORY: No cough, no hemoptysis. GI: No nausea, no vomiting. No abdominal pain. : No hematuria. No polyuria. MUSCULOSKELETAL:. No joint swelling. PSYCHIATRIC: Not anxious. No depression. No suicidal thoughts. No homicidal thoughts. SKIN: Intact. No rash. PHYSICAL EXAMINATION: V/S: Blood pressure 142/80, respiratory rate 22, heart rate 96, temperature 96.8 and saturation 88 on 4 liters. HEENT: Normocephalic, atraumatic. Mucosa dry. Pallor positive. No icterus. NECK: Supple. No JVD, no carotid bruit. No lymphadenopathy. LUNGS: Decreased and crackles with expiratory wheezing is present. No rales or rhonchi. HEART: S1, S2 normal. No S3. No murmur, gallop or regurgitation. ABDOMEN: Soft, nontender. Bowel sounds active. No rigidity. No rebound or guarding. No CVA tenderness. EXTREMITIES: No clubbing, cyanosis. 1+ edema. MUSCULOSKELETAL: No joint swelling. NEUROLOGIC: Awake, alert, oriented times three. No focal deficit. LYMPHATIC: No lymph nodes palpable. SKIN: Intact. LABS: WBC 10.77, hgb 8.9, hct 26.1, plt count 370, sodium 145, potassium 3.5, chloride 111, bicarb 23, BUN 26, creatinine 1.03. BNP 108. ASSESSMENT: 1. Acute respiratory failure secondary to the pneumonia 2. Fluid overload, questionable 3. Status post acute renal failure 4. Anemia, rule out GI bleed 5. Coronary artery disease 6. Congestive heart failure 7. Hypertension 8. Dyslipidemia PLAN: 1. Lasix 20mg IV push 2. Lovenox [address] with PE protocol is negative 4. Solu-Medrol 5. Zosyn 6. Vancomycin 7. Daily I&O's TIME SPENT: More than 35 minutes MTDD
[2017-06-14] MEDS: FERROUS SULFATE PO SCH ×3 (09:11→21:20)
[2017-06-14] MEDS: PLAVIX PO SCH (09:11)
[2017-06-14] MEDS: LIBRIUM PO SCH ×2 (09:11→21:20)
[2017-06-14] MEDS: XANAX PO SCH ×2 (09:11→12:38)
[2017-06-14] MEDS: LIPITOR PO SCH (09:12)
[2017-06-14] MEDS: LOVENOX SUBCUT SCH (09:12)
[2017-06-14] MEDS: MUCINEX PO SCH ×2 (09:12→21:21)
[2017-06-14] MEDS: NORCO 10-325 PO SCH ×3 (09:13→21:20)
[2017-06-14] MEDS: PROTONIX IV 40 MG in SODIUM CHLORIDE 100 ML IV SCH ×2 (09:16→21:20)
--- NOTE | 2017-06-14 11:44 | DS ---
DATE OF SERVICE: 06/11/17 SUBJECTIVE: The patient is still in mild respiratory distress but on 2 liters nasal cannula reluctant to put the CPAP at night time. REVIEW OF SYSTEMS: CONSTITUTIONAL: No fever, no chills. HEENT: Normal. ENDOCRINE: No weight gain, no weight loss. CVS: No angina symptoms. No CHF symptoms. No palpitations. No atypical chest pain for CAD. Shortness of breath. No PND, no orthopnea. RESPIRATORY: Coughing and congestion, no hemoptysis. GI: No nausea, no vomiting. No abdominal pain. : No hematuria. No polyuria. MUSCULOSKELETAL:. No joint swelling. PSYCHIATRIC: Not anxious. No depression. No suicidal thoughts. No homicidal thoughts. SKIN: Intact. No rash. PHYSICAL EXAMINATION: V/S: Blood pressure 144/87, respiratory rate 18, heart rate 76 and temperature 97.1 with saturation is 94% on 4 liters. GENERAL: Cachetic man HEENT: Normocephalic, atraumatic. Mucosa dry. Pallor positive. No icterus. NECK: Supple. No JVD, no carotid bruit. No lymphadenopathy. LUNGS: Decreased basilar crackles. Clear to auscultation. No rales or rhonchi. HEART: S1, S2 normal. No S3. No murmur, gallop or regurgitation. ABDOMEN: Soft, nontender. Bowel sounds active. No rigidity. No rebound or guarding. No CVA tenderness. EXTREMITIES: No clubbing, cyanosis. 1+ edema. MUSCULOSKELETAL: No joint swelling. NEUROLOGIC: Awake, alert, oriented times three. No focal deficit. LYMPHATIC: No lymph nodes palpable. SKIN: Intact and dry. LABS: WBC 10.56, hgb 8.9, hct 26, plt count 357, sodium 143, potassium 3.1, chloride 107, bicarb 27, BUN 22, creatinine 0.92. ASSESSMENT: 1. Bilateral community acquired pneumonia 2. Acute on chronic heart failure 3. Hypoxemic respiratory failure 4. Anemia, Rule out GI bleed 5. Hypokalemia 6. Coronary artery disease 7. Congestive heart failure PLAN: 1. Will be iron profile 2. Continue the Antibiotics 3. Breathing treatments 4. Solu-Medrol 5. Lovenox for the DVT prophylaxis 6. Zosyn. TIME SPENT: More than 35 minutes MTDD
--- NOTE | 2017-06-14 11:54 | PN ---
DATE OF SERVICE: 06/12/17 SUBJECTIVE: The patient was admitted with the acute renal failure and COPD exacerbation. Right now the patient is being treated for the pneumonia and fluid overload. Using the BIPAP as we were rounding, not every time. REVIEW OF SYSTEMS: CONSTITUTIONAL: No fever, no chills. HEENT: Normal. ENDOCRINE: No weight gain, no weight loss. CVS: No angina symptoms. No CHF symptoms. No palpitations. No atypical chest pain for CAD. No shortness of breath. No PND, no orthopnea. RESPIRATORY: No cough, no hemoptysis. GI: No nausea, no vomiting. No abdominal pain. : No hematuria. No polyuria. MUSCULOSKELETAL:. No joint swelling. PSYCHIATRIC: Not anxious. No depression. No suicidal thoughts. No homicidal thoughts. SKIN: Intact. No rash. PHYSICAL EXAMINATION: V/S: BLood pressure 104/70, respiratory rate 96, heart rate 76, temperature 97.7 with saturation 96% on 4 liters. GENERAL: Cachetic male laying in the bed and not in any distress. HEENT: Normocephalic, atraumatic. Mucosa dry. Pallor positive. No icterus. NECK: Supple. No JVD, no carotid bruit. No lymphadenopathy. LUNGS: Decreased and basilar crackles. No rales or rhonchi. HEART: S1, S2 normal. No S3. No murmur, gallop or regurgitation. ABDOMEN: Soft, nontender. Bowel sounds active. No rigidity. No rebound or guarding. No CVA tenderness. EXTREMITIES: No clubbing, cyanosis. 1+ edema. MUSCULOSKELETAL: No joint swelling. NEUROLOGIC: Awake, alert, oriented times three. No focal deficit. LYMPHATIC: No lymph nodes palpable. SKIN: Intact. LABS: WBC 9.27, hgb 8.9, hct 25.9, plt count 304, sodium 142, potassium 4.0, chloride 108, bicarb 28, BUN 17, creatinine 0.92 ASSESSMENT: 1. Acute on chronic heart failure 2. Fluid overload 3. COPD exacerbation 4. Pneumonia 5. Respiratory failure, doesn't want any intubation 6. History of coronary artery disease 7. Congestive heart failure 8. Hypertension 9. Anemia, rule out GI bleed PLAN: 1. Continue the breathing treatments 2. Solu-Medrol 40 Q 8 hours 3. I&O's 4. Zosyn 5. Lovenox for the DVT prophylaxis TIME SPENT: More than 35 minutes MTDD
[2017-06-14 17:42] LABS: HEMATOCRIT 30.9 % (42.0-52.0); HEMOGLOBIN 10.3 g/dl (14.0-18.0)
[2017-06-15] MEDS: ZOSYN 3.375 GM 3.375 GM in SODIUM CHLORIDE 100 ML IV SCH ×4 (00:06→17:36)
[2017-06-15] MEDS: XOPENEX 1.25 MG NEB SCH ×4 (05:00→23:25)
[2017-06-15 05:08] LABS: BASOPHILS % (AUTO) 0.1 % (0.0-3.0); HEMATOCRIT 29.7 % (42.0-52.0); HEMOGLOBIN 9.9 g/dl (14.0-18.0); IMMATURE GRANULOCYTE % (AUTO) 1.7 % (0.0-5.0); LYMPHOCYTES # (AUTO) 0.4 K/uL (0.60-3.4); LYMPHOCYTES % (AUTO) 3.8 (10.0-50.0); MEAN CORPUSCULAR HEMOGLOBIN 30.1 pg (27.0-31.0); MEAN CORPUSCULAR HGB CONC 33.3 (31.8-35.4); MEAN CORPUSCULAR VOLUME 90.3 fl (80.0-94.0); MONOCYTES # (AUTO) 0.3 K/uL (0.4-2.0); MONOCYTES % (AUTO) 2.8 (0-10); NEUTROPHILS # (AUTO) 10.5 K/ul (2.0-6.9); NEUTROPHILS % (AUTO) 91.6; PLATELET COUNT 219 10^3/uL (140-440); RED BLOOD COUNT 3.29 10^6/ul (4.70-6.10); WHITE BLOOD COUNT 11.45 K/ul (4.2-10.2)
[2017-06-15 05:25] LABS: ANION GAP 11.2; CALCIUM 7.9 mg/dL (8.2-10.2); POTASSIUM 4.2 mmol/L (3.5-5.1)
[2017-06-15] MEDS: PROTONIX IV 40 MG in SODIUM CHLORIDE 100 ML IV SCH ×2 (08:43→20:58)
[2017-06-15] MEDS: XANAX PO SCH ×2 (08:43→12:16)
[2017-06-15] MEDS: LIBRIUM PO SCH ×2 (08:43→20:57)
[2017-06-15] MEDS: FERROUS SULFATE PO SCH ×3 (08:43→20:57)
[2017-06-15] MEDS: LOVENOX SUBCUT SCH (08:43)
[2017-06-15] MEDS: MUCINEX PO SCH ×2 (08:44→20:57)
[2017-06-15] MEDS: SOLU-MEDROL 40 MG IVP SCH ×2 (08:44→20:58)
[2017-06-15] MEDS: LIPITOR PO SCH (08:44)
[2017-06-15] MEDS: PLAVIX PO SCH (08:44)
[2017-06-15] MEDS: NORCO 10-325 PO SCH ×3 (08:44→20:57)
[2017-06-15] MEDS ORDERED: IMODIUM PO STA (09:47)
--- NOTE | 2017-06-15 15:29 | PN ---
DATE OF SERVICE: 06/15/17 SUBJECTIVE: The patient was admitted with acute respiratory failure and acute renal failure complicated with acute on chronic heart failure. The patient is getting gradually better, more awake and alert using the BIPAP at night which is helping him. He did receive the blood transfusion yesterday. Hgb today is 9.9. REVIEW OF SYSTEMS: CONSTITUTIONAL: No fever, no chills. HEENT: Normal. ENDOCRINE: No weight gain, no weight loss. CVS: No angina symptoms. No CHF symptoms. No palpitations. No atypical chest pain for CAD. No shortness of breath. No PND, no orthopnea. RESPIRATORY: No cough, no hemoptysis. GI: No nausea, no vomiting. No abdominal pain. : No hematuria. No polyuria. MUSCULOSKELETAL:. No joint swelling. PSYCHIATRIC: Not anxious. No depression. No suicidal thoughts. No homicidal thoughts. SKIN: Intact. No rash. PHYSICAL EXAMINATION: V/S: Blood pressure 126/80, respiratory rate 17, heart rate 60, temperature 98.2 with saturation 92 on 2 liters. HEENT: Normocephalic, atraumatic. Mucosa dry. Pallor positive. No icterus. NECK: Supple. No JVD, no carotid bruit. No lymphadenopathy. LUNGS: Decreased and clear to auscultation. No rales or rhonchi. HEART: S1, S2 normal. No S3. No murmur, gallop or regurgitation. ABDOMEN: Soft, nontender. Bowel sounds active. No rigidity. No rebound or guarding. No CVA tenderness. EXTREMITIES: No clubbing, cyanosis or pedal edema. MUSCULOSKELETAL: No joint swelling. NEUROLOGIC: Awake, alert, oriented times three. No focal deficit. LYMPHATIC: No lymph nodes palpable. SKIN: Intact. LABS: WBC 11.45, hgb 9.9, hct 29.7, plt count 219, sodium 141, potassium 4.2, chloride 108, bicarb 26, BUN 15, creatinine 1.0 ASSESSMENT: 1. Status post acute respiratory failure from acute and chronic heart failure and pneumonia. 2. Status post acute renal failure, the function is normal now 3. Coronary artery disease 4. Congestive heart failure 5. Dyslipidemia PLAN: 1. Continue the Protonix 2. Out of bed to chair 3. Will stop the BIPAP tonight to see how the patient is doing 4. Lovenox for the DVT prophylaxis 5. Daily I&O's TIME SPENT: More than 35 minutes MTDD
--- NOTE | 2017-06-15 15:35 | PN ---
DATE OF SERVICE: 06/14/17 SUBJECTIVE: The patient was admitted to the hospital with renal failure. Hgb is slightly dropping. Today is 8.3. Had discussion with [employer], Marcella Vallejo in review of the patient's heart failure, acute respiratory failure with hgb of 8.3 he will be instructed to get a blood transfusion so we will be doing some blood transfusion today. REVIEW OF SYSTEMS: CONSTITUTIONAL: No fever, no chills. HEENT: Normal. ENDOCRINE: No weight gain, no weight loss. CVS: No angina symptoms. No CHF symptoms. No palpitations. No atypical chest pain for CAD. No shortness of breath. No PND, no orthopnea. RESPIRATORY: No cough, no hemoptysis. GI: No nausea, no vomiting. No abdominal pain. : No hematuria. No polyuria. MUSCULOSKELETAL:. No joint swelling. PSYCHIATRIC: Not anxious. No depression. No suicidal thoughts. No homicidal thoughts. SKIN: Intact. No rash. PHYSICAL EXAMINATION: V/S: Blood pressure 142/78, respiratory rate 18, heart rate 96, temperature 97.4 with saturation is 96 on 2 liters. HEENT: Normocephalic, atraumatic. Mucosa dry. Pallor positive. No icterus. NECK: Supple. No JVD, no carotid bruit. No lymphadenopathy. LUNGS: Decreased and basilar crackles. No rales or rhonchi. HEART: S1, S2 normal. No S3. No murmur, gallop or regurgitation. ABDOMEN: Soft, nontender. Bowel sounds active. No rigidity. No rebound or guarding. No CVA tenderness. EXTREMITIES: No clubbing, cyanosis. 1+ edema. MUSCULOSKELETAL: No joint swelling. NEUROLOGIC: Awake, alert, oriented times three. No focal deficit. LYMPHATIC: No lymph nodes palpable. SKIN: Intact. LABS: WBC 11.60, hgb 8.3, hct 25.8, plt count 230, sodium 141, potassium 4.3, chloride 108, bicarb 27, BUN 15, creatinine 0.99. ASSESSMENT: 1. Anemia needing blood transfusion 2. Status post acute respiratory failure 3. Status post acute on chronic heart failure 4. Bilateral pneumonia 5. Respiratory failure 6. Acute renal failure which is better from the dehydration and diarrhea. 7. Coronary artery disease 8. Angina 9. Hypertension PLAN: 1. Type and cross match and transfuse one unit 2. Continue the antibiotic Zosyn 3. Breathing treatments 4. Daily I&O's TIME SPENT: More than 35 minutes MTDD
[2017-06-15] MEDS: IMODIUM PO SCH (20:57)
[2017-06-16] MEDS: ZOSYN 3.375 GM 3.375 GM in SODIUM CHLORIDE 100 ML IV SCH ×2 (00:07→05:11)
[2017-06-16] MEDS: XOPENEX 1.25 MG NEB SCH ×4 (05:10→22:50)
[2017-06-16 05:31] LABS: BASOPHILS % (AUTO) 0.1 % (0.0-3.0); HEMATOCRIT 29.9 % (42.0-52.0); IMMATURE GRANULOCYTE % (AUTO) 1.1 % (0.0-5.0); LYMPHOCYTES # (AUTO) 0.5 K/uL (0.60-3.4); LYMPHOCYTES % (AUTO) 4.3 (10.0-50.0); MEAN CORPUSCULAR HEMOGLOBIN 30.2 pg (27.0-31.0); MEAN CORPUSCULAR HGB CONC 33.4 (31.8-35.4); MEAN CORPUSCULAR VOLUME 90.3 fl (80.0-94.0); MONOCYTES # (AUTO) 0.4 K/uL (0.4-2.0); MONOCYTES % (AUTO) 3.8 (0-10); NEUTROPHILS # (AUTO) 9.8 K/ul (2.0-6.9); NEUTROPHILS % (AUTO) 90.7; PLATELET COUNT 202 10^3/uL (140-440); RED BLOOD COUNT 3.31 10^6/ul (4.70-6.10); WHITE BLOOD COUNT 10.76 K/ul (4.2-10.2)
[2017-06-16 05:58] LABS: BUN/CREATININE RATIO 11.88; CREATININE 1.01 mg/dL (0.60-1.10)
[2017-06-16 08:18] LABS: CARCINOEMBRYONIC ANTIGEN 2.3 ng/mL (0.0-4.7)
[2017-06-16] MEDS: XANAX PO SCH ×2 (08:36→12:24)
[2017-06-16] MEDS: FERROUS SULFATE PO SCH ×3 (08:37→20:37)
[2017-06-16] MEDS: IMODIUM PO SCH ×2 (08:37→20:37)
[2017-06-16] MEDS: MUCINEX PO SCH ×2 (08:37→20:38)
[2017-06-16] MEDS: LIBRIUM PO SCH ×2 (08:37→20:38)
[2017-06-16] MEDS: NORCO 10-325 PO SCH ×3 (08:37→20:39)
[2017-06-16] MEDS: LOVENOX SUBCUT SCH (08:37)
[2017-06-16] MEDS: LIPITOR PO SCH (08:37)
[2017-06-16] MEDS: PLAVIX PO SCH (08:37)
[2017-06-16] MEDS: PREDNISONE PO SCH ×2 (08:58→17:02)
[2017-06-16] MEDS: KEFLEX PO SCH ×2 (08:58→20:38)
[2017-06-16] MEDS: PROTONIX PO SCH ×2 (08:58→17:02)
[2017-06-16] MEDS ORDERED: PROTONIX PO SCH (09:00)
[2017-06-16 14:06] LABS: OCCULT BLOOD INTERNAL QC 1 INTERNAL QC VALID; OCCULT BLOOD SAMPLE 1 NEGATIVE (NEGATIVE)
[2017-06-17 00:03] LABS: OCCULT BLOOD INTERNAL QC 2 INTERNAL QC VALID; OCCULT BLOOD INTERNAL QC 3 INTERNAL QC VALID; OCCULT BLOOD SAMPLE 2 NO SPECIMEN RECEIVED (NEGATIVE); OCCULT BLOOD SAMPLE 3 NO SPECIMEN RECEIVED (NEGATIVE)
[2017-06-17 04:58] LABS: BASOPHILS % (AUTO) 0.1 % (0.0-3.0); HEMATOCRIT 28.3 % (42.0-52.0); HEMOGLOBIN 9.3 g/dl (14.0-18.0); IMMATURE GRANULOCYTE % (AUTO) 0.7 % (0.0-5.0); LYMPHOCYTES # (AUTO) 0.7 K/uL (0.60-3.4); LYMPHOCYTES % (AUTO) 7.3 (10.0-50.0); MEAN CORPUSCULAR HGB CONC 32.9 (31.8-35.4); MEAN CORPUSCULAR VOLUME 91.3 fl (80.0-94.0); MONOCYTES # (AUTO) 0.6 K/uL (0.4-2.0); MONOCYTES % (AUTO) 6.4 (0-10); NEUTROPHILS # (AUTO) 8.1 K/ul (2.0-6.9); NEUTROPHILS % (AUTO) 85.5; PLATELET COUNT 198 10^3/uL (140-440); WHITE BLOOD COUNT 9.51 K/ul (4.2-10.2)
[2017-06-17] MEDS: XOPENEX 1.25 MG NEB SCH ×2 (05:02→11:41)
[2017-06-17 05:16] LABS: ANION GAP 8.8; BUN/CREATININE RATIO 14.77; CREATININE 0.88 mg/dL (0.60-1.10); POTASSIUM 3.8 mmol/L (3.5-5.1)
[2017-06-17] MEDS: PROTONIX PO SCH (05:30)
[2017-06-17 06:01] VITALS: TEMP 97.5
[2017-06-17] MEDS: KEFLEX PO SCH (08:53)
[2017-06-17] MEDS: IMODIUM PO SCH (08:53)
[2017-06-17] MEDS: FERROUS SULFATE PO SCH (08:53)
[2017-06-17] MEDS: LIPITOR PO SCH (08:54)
[2017-06-17] MEDS: MUCINEX PO SCH (08:54)
[2017-06-17] MEDS: NORCO 10-325 PO SCH (08:54)
[2017-06-17] MEDS: PREDNISONE PO SCH (08:55)
[2017-06-17] MEDS: XANAX PO SCH (08:55)
[2017-06-17] MEDS: PLAVIX PO SCH (08:55)
[2017-06-17] MEDS: LOVENOX SUBCUT SCH (08:56)
[2017-06-17] MEDS: LIBRIUM PO SCH (09:00)
[2017-06-17 09:50] VITALS: BP 106/59
--- NOTE | 2017-06-17 11:11 | PN ---
DATE OF SERVICE: 06/16/17 SUBJECTIVE: The patient did not choose BIPAP at night, doing fine, more awake and alert, walking around. He is urinating fine. No new problems at this time. REVIEW OF SYSTEMS: CONSTITUTIONAL: No fever, no chills. HEENT: Normal. ENDOCRINE: No weight gain, no weight loss. CVS: No angina symptoms. No CHF symptoms. No palpitations. No atypical chest pain for CAD. No shortness of breath. No PND, no orthopnea. RESPIRATORY: No cough, no hemoptysis. GI: No nausea, no vomiting. No abdominal pain. : No hematuria. No polyuria. MUSCULOSKELETAL:. No joint swelling. PSYCHIATRIC: Not anxious. No depression. No suicidal thoughts. No homicidal thoughts. SKIN: Intact. No rash. PHYSICAL EXAMINATION: V/S: BP 116/75, respiratory rate 18, heart rate 73, temperature 97.6, saturation 96 on room air. HEENT: Normocephalic, atraumatic. Mucosa dry, pallor positive. No icterus. NECK: Supple. No JVD, no carotid bruit. No lymphadenopathy. LUNGS: Clear and equal to auscultation. No rales or rhonchi. HEART: S1, S2 normal. No S3. No murmur, gallop or regurgitation. ABDOMEN: Soft, nontender. Bowel sounds active. No rigidity. No rebound or guarding. No CVA tenderness. EXTREMITIES: No clubbing, cyanosis or pedal edema. MUSCULOSKELETAL: No joint swelling. NEUROLOGIC: Awake, alert, oriented times three. No focal deficit. LYMPHATIC: No lymph nodes palpable. SKIN: Intact. LABS: White count 10.76, hemoglobin 10, hematocrit 29.9, platelet count 202. Sodium 141, potassium 4.0, chloride 108, bicarb 28, BUN 12, creatinine 1.01. ASSESSMENT: 1. ACUTE RESPIRATORY FAILURE 2. STATUS POST ACUTE ON CHRONIC HEART FAILURE 3. STATUS POST PNEUMONIA 4. DEHYDRATION 5. HISTORY OF CAD 6. CHF 7. HYPERTENSION PLAN: 1. Continue patient without BIPAP at night. 2. Out of bed to chair. 3. Activity as tolerated. 4. As the patient has been using BIPAP for almost 10 days, want to make sure the patient can survive without BIPAP at night time and does not have any respiratory distress. 5. Advised activity and regular diet. TIME SPENT: More than 35 minutes MTDD
--- NOTE | 2017-07-05 14:32 | DS ---
DATE OF SERVICE: 06/17/17 FINAL DIAGNOSIS: 1. Status post acute respiratory failure secondary to the COPD exacerbation and pneumonia 2. Acute on chronic heart failure 3. Severe hypoxemia 4. Congestive heart failure 5. Coronary artery disease 6. Status post acute renal failure with the gastroenteritis 7. GERD 8. Thoracic aortic aneurysm 9. Past history of ETOH 10.Continued tobacco use 11.Arthritis 12.BPH 13.CABG 14.Stent application 15.Permanent pacemaker 16.Neck fusion 17.Aortic peripheral aneurysm surgery DISCHARGE INSTRUCTIONS: Discharge the patient home. Keep appointment with Dr. Sims, doctor for the endoscopy and colonoscopy for the anemia evaluation. Continue the rest of the home medications. MEDICATIONS AT DISCHARGE: Xanax Aspirin Atorvastatin Plavix Ferrous Sulfate Hydrocodone Lopressor Nitrostat Protonix NEW PRESCRIPTIONS: Prednisone 10mg PO twice a day for 5 days Ferrous Sulfate Protonix 40mg PO twice a day Lopressor 50mg take twice daily Librium 10mg twice daily DIET INSTRUCTIONS: Cardiac and heart healthy diet. No salt diet ACTIVITY: As much as tolerated. SMOKING: Former smoker DISEASE SPECIFIC EDUCATION: Congestive heart failure Prevention of the COPD Risk of pneumonia and needing pneumonia vaccination. Anemia and need for the colonoscopy and endoscopy been discussed with the patient and verbalized understanding HOSPITAL COURSE: Shalom Lainez who is a 56 year old male with the multiple medical problems, Coronary artery disease, Congestive heart failure, bypass surgery came to the emergency room with shortness of breath, cough, congestion and diarrhea. Was found to be in acute renal failure. The D-dimer was 4,000 and ABG showed the pH 7.542, pCO2 25.4, pO2 58. BUN and creatinine was 54 and 1.32. At that time BNP was 48. CT of abdomen and pelvis showed no bowel obstruction, no acute inflammatory changes, Diverticular disease. Chest x-ray was negative for any infiltration. At that time the patient was admitted to the hospital and started on the IV fluids. Solu-Medrol and breathing treatments. IV fluids were given at 150ml per hour. Gradually BUN and creatinine was getting better. Hgb dropped from the 14.8 to 11.4, 1.8, 9.7 and 8.8. In review of elevated D-Dimer the patient been due for the evaluating for the pulmonary embolism which could not be done with CT chest because of the patient's elevated BUN and creatinine. We did get a CT chest without contrast which showed the bilateral bronchial thickening and the centrilobular nodule, pleural effusions were seen without contrast. The patient then went into the acute respiratory failure with ABG showing the pH 7.534, pCO2 43.4. pO2 50. The patient was put on the CPAP and the BIPAP. Repeat BNP was done which was 1000.8. Repeat chest x-ray was done; bilateral pulmonary effusions were seen. At that time again gradually started diuresing the patient. CPAP and BIPAP was used at the night time. The patient was a DNR so he was not put on the intubation. Gradually the patient was feeling better and getting improved which did take some time but he was improved everyday but needing the CPAP and BIPAP use. At that time we thought because of the hgb 8.6 maybe needing one unit of the blood transfusion to help him to breath better. Which we did. Gradually the patient improved over time. Hgb became 10.3, 9.9 and 10. Up and about walking. ABG were getting better BUN and creatinine was normal. Anasarca has been improved, leg edema is resolved and walking and not short of breath. At that time outpatient plan was done for the endoscopy and colonoscopy evaluation and the patient being discharged home. TIME SPENT: MORE THAN 60 MINUTES MTDD
--- NOTE | 2017-07-05 15:16 | PN ---
DATE OF SERVICE: 06/13/17 SUBJECTIVE: The patient was admitted with the acute renal failure, COPD exacerbation, respiratory failure complicated with acute respiratory failure and being on the CPAP and BIPAP. The patient been using the BIPAP at night time and says that it is helping a lot. REVIEW OF SYSTEMS: CONSTITUTIONAL: No fever, no chills. HEENT: Normal. ENDOCRINE: No weight gain, no weight loss. CVS: No angina symptoms. No CHF symptoms. No palpitations. No atypical chest pain for CAD. No shortness of breath. No PND, no orthopnea. RESPIRATORY: No cough, no hemoptysis. GI: No nausea, no vomiting. No abdominal pain. : No hematuria. No polyuria. MUSCULOSKELETAL:. No joint swelling. PSYCHIATRIC: Not anxious. No depression. No suicidal thoughts. No homicidal thoughts. SKIN: Intact. No rash. PHYSICAL EXAMINATION: V/S: Blood pressure 112/68, respiratory rate 16, heart rate 68, temperature 98.4 with saturation 95% on 2 liters. HEENT: Normocephalic, atraumatic. Mucosa dry, Pallor positive. No icterus. NECK: Supple. No JVD, no carotid bruit. No lymphadenopathy. LUNGS: Decreased and basilar crackles. No rales or rhonchi. HEART: S1, S2 normal. No S3. No murmur, gallop or regurgitation. ABDOMEN: Soft, nontender. Bowel sounds active. No rigidity. No rebound or guarding. No CVA tenderness. EXTREMITIES: No clubbing, cyanosis. 1+ pedal edema. MUSCULOSKELETAL: No joint swelling. NEUROLOGIC: Awake, alert, oriented times three. No focal deficit. LYMPHATIC: No lymph nodes palpable. SKIN: Intact. LABS: WBC 10.04, hgb 8.9, hct 26.0, plt count 271, sodium 140, potassium 4.0, chloride 107, bicarb 28, BUN 14, creatinine 0.88 ASSESSMENT: 1. Acute respiratory failure 2. Status post acute renal failure 3. Status post fluid overload 4. Anemia needing blood transfusion, 1 unit right now hgb is stable 5. Coronary artery disease 6. Congestive heart failure 7. Hypertension PLAN: 1. Continue the BIPAP at night time, slowly we will wean him off 2. Out of bed to chair activity as tolerated 3. DUO NEBS 4. Daily I&O's TIME SPENT: More than 35 minutes MTDD
== END 2017-06-17 12:30 | disposition home or self-care (01) | DRG 190 ==
LOC: ED 16:24 → MEDSURG B 20:10
PROVIDERS: ADMIT Emergency Medicine; ATTEND Emergency Medicine
PROC: 30233N1 Transfusion of Nonautologous Red Blood Cells into Peripheral Vein, Percutaneous Approach (ICD-10-PCS; principal; 2017-06-14)
DX: J44.1 Chronic obstructive pulmonary disease with (acute) exacerbation (principal); J18.9 Pneumonia, unspecified organism; J96.01 Acute respiratory failure with hypoxia; N17.9 Acute kidney failure, unspecified; J91.8 Pleural effusion in other conditions classified elsewhere; N18.2 Chronic kidney disease, stage 2 (mild); E86.0 Dehydration; R53.1 Weakness; R06.02 Shortness of breath; I10 Essential (primary) hypertension; R79.1 Abnormal coagulation profile; I50.9 Heart failure, unspecified; I25.10 Atherosclerotic heart disease of native coronary artery without angina pectoris; K52.9 Noninfective gastroenteritis and colitis, unspecified; I95.9 Hypotension, unspecified; D64.9 Anemia, unspecified; E87.70 Fluid overload, unspecified; K57.30 Diverticulosis of large intestine without perforation or abscess without bleeding; K21.9 Gastro-esophageal reflux disease without esophagitis; I71.2 Thoracic aortic aneurysm, without rupture; F10.21 Alcohol dependence, in remission; M19.90 Unspecified osteoarthritis, unspecified site; N40.0 Benign prostatic hyperplasia without lower urinary tract symptoms; F17.200 Nicotine dependence, unspecified, uncomplicated; R10.816 Epigastric abdominal tenderness; Z95.1 Presence of aortocoronary bypass graft; Z79.899 Other long term (current) drug therapy; Z95.5 Presence of coronary angioplasty implant and graft; Z95.0 Presence of cardiac pacemaker; Z98.890 Other specified postprocedural states
CPT/HCPCS: 36415; 36430; 80048; 80053; 81001; 82272; 82378; 82550; 82607; 82728; 82746; 82803; 83540; 83550; 83735; 83880; 84466; 84484; 85014; 85018; 85025; 85045; 85379; 86301; 86850; 86900; 86922; 87040; 87493; 87651; 87804; 87880; 93005; 93010; 94640; 94660; 96361; 96374; 97802; 99233; 99239; 99284; 99291

== ENCOUNTER 2017-08-19 13:52 | Outpatient (CLI) ==
[2017-08-19 14:00] LABS: BASOPHILS % (AUTO) 0.5 % (0.0-3.0); EOSINOPHILS # (AUTO) 0.2 K/ul (0.0-0.7); HEMATOCRIT 43.5 % (42.0-52.0); HEMOGLOBIN 14.2 g/dl (14.0-18.0); IMMATURE GRANULOCYTE % (AUTO) 0.4 % (0.0-5.0); LYMPHOCYTES # (AUTO) 1.8 K/uL (0.60-3.4); LYMPHOCYTES % (AUTO) 22.3 (10.0-50.0); MEAN CORPUSCULAR HEMOGLOBIN 30.1 pg (27.0-31.0); MEAN CORPUSCULAR HGB CONC 32.6 (31.8-35.4); MEAN CORPUSCULAR VOLUME 92.2 fl (80.0-94.0); MONOCYTES # (AUTO) 0.7 K/uL (0.4-2.0); MONOCYTES % (AUTO) 9.2 (0-10); NEUTROPHILS # (AUTO) 5.1 K/ul (2.0-6.9); NEUTROPHILS % (AUTO) 64.6; PLATELET COUNT 205 10^3/uL (140-440); RED BLOOD COUNT 4.72 10^6/ul (4.70-6.10); WHITE BLOOD COUNT 7.91 K/ul (4.2-10.2)
== END 2017-08-19 13:53 | disposition home or self-care (01) ==
LOC: LAB 13:52
PROVIDERS: ATTEND Emergency Medicine
DX: D50.8 Other iron deficiency anemias (principal); J06.9 Acute upper respiratory infection, unspecified
CPT/HCPCS: 36415; 85025; 87651; 87880

== ENCOUNTER 2017-09-24 14:11 | Outpatient (CLI) | END 2017-09-24 14:12 | disposition home or self-care (01) | LOC: LAB 14:11 | PROVIDERS: ATTEND Emergency Medicine | DX: J06.9 Acute upper respiratory infection, unspecified (principal) | CPT/HCPCS: 87651; 87804 ==

== ENCOUNTER 2017-11-04 11:07 | Outpatient (CLI) | END 2017-11-04 11:08 | disposition home or self-care (01) | LOC: RHC-LAB 11:07 | PROVIDERS: ATTEND Emergency Medicine | DX: I25.10 Atherosclerotic heart disease of native coronary artery without angina pectoris (principal); J44.9 Chronic obstructive pulmonary disease, unspecified; E78.5 Hyperlipidemia, unspecified; F41.9 Anxiety disorder, unspecified; Z12.5 Encounter for screening for malignant neoplasm of prostate | CPT/HCPCS: 36415; 80053; 80061; 84443; 85025 ==

== ENCOUNTER 2017-11-05 14:07 | Outpatient (CLI) ==
--- NOTE | 2017-11-05 14:52 | CT ---
EXAM: CT chest without contrast. HISTORY: Chronic obstructive pulmonary disease. Pulmonary nodule follow-up. COMPARISON: 06/09/2017, 11/09/2016, 08/18/2016, 08/07/2013. TECHNIQUE: Multiple axial images of the chest were obtained without intravenous contrast. Images we re reformatted in the sagittal and coronal planes. FINDINGS: Evaluation for lymphadenopathy is limited by lack of intravenous contrast. Heart size is normal. There is no pericardial effusion. Atherosclerotic calcifications are present. Calcified gr anulomatous changes. Emphysematous changes present bilaterally. No consolidation, pleural effusion or pneumothorax identi fied. Ground-glass opacities and nodular opacities noted on the prior study have resolved. No acute abnormality identified in the upper abdomen. Nonspecific gaseous distension noted. There h as been previous ACDF. No acute osseous abnormality identified. Extensive air present within the ep idural space and posterior paravertebral soft tissues of the lower cervical and thoracic spine. IMPRESSION: 1. Resolution of ground-glass opacities and pulmonary nodules noted on the prior study. No acute pu lmonary process. 2. Unexpected finding: Epidural and subcutaneous air along the cervical and thoracic spine which is common in the setting of recent instrumentation. Correlate for signs of trauma.
== END 2017-11-05 14:08 | disposition home or self-care (01) ==
LOC: RAD 14:07
PROVIDERS: ATTEND Emergency Medicine
DX: J44.9 Chronic obstructive pulmonary disease, unspecified (principal)

== ENCOUNTER 2017-11-10 11:32 | Outpatient (CLI) | END 2017-11-10 11:33 | disposition home or self-care (01) | LOC: RHC-LAB 11:32 | PROVIDERS: ATTEND Emergency Medicine | DX: E87.5 Hyperkalemia (principal) | CPT/HCPCS: 36415; 80053 ==

== ENCOUNTER 2017-11-30 14:41 | Outpatient (CLI) ==
--- NOTE | 2017-11-30 16:14 | DI ---
Exam: Two x-rays of the chest. Comparison: CT chest performed 11/05/2017. Reason for exam: Upper respiratory infection. FINDINGS: Parenchymal changes are seen consistent with chronic lung disease. Operative changes are seen after anterior cervical discectomy and fusion. The lungs are hyperexpanded. There is mild basi lar atelectasis. The cardiac silhouette is not enlarged. Impression: No acute cardiopulmonary process in the setting of chronic lung disease.
== END 2017-11-30 14:42 | disposition home or self-care (01) ==
LOC: RAD 14:41
PROVIDERS: ATTEND Emergency Medicine
DX: J06.9 Acute upper respiratory infection, unspecified (principal)

== ENCOUNTER 2018-01-07 16:10 | Observation (INO) ==
[2018-01-07 16:44] VITALS: BMI 15.2
[2018-01-07] MEDS ORDERED: NITROGLYCERIN SL PRN (17:16)
--- NOTE | 2018-01-07 18:38 | CT ---
EXAM: CT head without contrast HISTORY: Dizzy COMPARISON: Head CT from 06/30/2011 TECHNIQUE: Helical axial CT of the head was performed without contrast. Coronal and sagittal reconstr uctions were performed. FINDINGS: There is no acute intracranial abnormality. There is no hemorrhage, mass, midline shift, abnormal ex tra-axial fluid collection, hydrocephalus or evolving ischemia. The dodson-white matter junction is wel l maintained. There is some periventricular chronic small vessel ischemia in the white matter right g reater than left. There is trace atrophy. Brain parenchyma, ventricles and sulci are otherwise ashley l. There are no acute calvarial lesions. Visualized orbits and globes are unremarkable. The mastoid ai r cells demonstrate no significant soft tissue opacification. The visualized paranasal sinuses show n o air-fluid levels. There is some calcific atherosclerosis. IMPRESSION: 1. No acute intracranial abnormality. Specifically there is no hemorrhage or evolving ischemia or m ass. 2. Mild senescent changes as noted.
[2018-01-07] MEDS ORDERED: NORCO 10-325 ONE (19:35)
[2018-01-07] MEDS: FERROUS SULFATE PO SCH (20:15)
[2018-01-07] MEDS: LOPRESSOR PO SCH (20:15)
[2018-01-07] MEDS: SYMBICORT 160-4.5 MCG INHALER IH SCH (20:16)
[2018-01-07] MEDS ORDERED: ACETAMINOPHEN PO SCH (21:00)
[2018-01-07] MEDS ORDERED: HYDROCODONE PO SCH (21:00)
[2018-01-08] MEDS ORDERED: NITROSTAT SL PRN (06:16)
[2018-01-08] MEDS: NORCO 10-325 PO SCH ×3 (08:25→21:39)
[2018-01-08] MEDS: LIPITOR PO SCH (08:25)
[2018-01-08] MEDS: ASPIRIN EC PO SCH (08:25)
[2018-01-08] MEDS: LOPRESSOR PO SCH ×2 (08:25→20:37)
[2018-01-08] MEDS: SYMBICORT 160-4.5 MCG INHALER IH SCH ×2 (08:25→21:39)
[2018-01-08] MEDS: XANAX PO SCH ×2 (08:25→12:11)
[2018-01-08] MEDS: FERROUS SULFATE PO SCH ×3 (08:25→20:38)
[2018-01-08] MEDS: ZESTRIL PO SCH (08:25)
[2018-01-08] MEDS: PLAVIX PO SCH (08:25)
[2018-01-08] MEDS ORDERED: NON-FORMULARY MEDICATION (Lisinopril [Lisinopril] 20 MG) PO SCH (09:00)
[2018-01-09 05:46] VITALS: BP 98/68; TEMP 97.9
[2018-01-09] MEDS: SYMBICORT 160-4.5 MCG INHALER IH SCH (08:23)
[2018-01-09] MEDS: FERROUS SULFATE PO SCH (08:23)
[2018-01-09] MEDS: LIPITOR PO SCH (08:23)
[2018-01-09] MEDS: LOPRESSOR PO SCH (08:23)
[2018-01-09] MEDS: ZESTRIL PO SCH (08:23)
[2018-01-09] MEDS: ASPIRIN EC PO SCH (08:23)
[2018-01-09] MEDS: PLAVIX PO SCH (08:24)
[2018-01-09] MEDS: NORCO 10-325 PO SCH (08:24)
[2018-01-09] MEDS: XANAX PO SCH (08:24)
--- NOTE | 2018-02-05 12:51 | DS ---
DATE OF SERVICE: 01/09/18 FINAL DIAGNOSIS: 1. DIZZINESS MOST LIKELY FROM MIDDLE EAR 2. SINUS ANTOINETTE (WORSE WHEN PATIENT WAS SLEEPING, WENT DOWN TO 53 AND 46; WHEN AWAKE IT IS 60 TO 74) 3. HYPERTENSION 4. DYSLIPIDEMIA 5. CAD 6. BYPASS SURGERY 7. COPD 8. PERIPHERAL VASCULAR DISEASE 9. DYSLIPIDEMIA 10. [place]HEXIA DISCHARGE INSTRUCTIONS: Followup appointment with Dr. Hutchins at the clinic on Wednesday or ; patient is to call for appointment. MEDICATIONS AT DISCHARGE: Atorvastatin Clopidogrel Lisinopril Metoprolol Xanax Aspirin Symbicort Hydrocodone Nitrostat Ferrous Sulfate Antivert Prednisone NEW PRESCRIPTIONS: Prednisone 10 mg twice a day for 5 days Antivert 25 mg three times a day DIET INSTRUCTIONS: Cardiac and healthy ACTIVITY: As much as tolerated SMOKING: Former smoker DISEASE SPECIFIC EDUCATION: Dizziness, lightheadedness and falls have been discussed and verbalizes understanding. HOSPITAL COURSE: This is a 57-year-old male with history of COPD, coronary artery disease, positive stents, bypass surgery came to the office with dizziness, lightheadedness and the patient was trying to walk and was leaning to the side, worried about having a stroke or heart attack and came to the office. He was admitted directly from the office. CT head did not show any acute stroke. Blood count, BUN and creatinine were normal. Given IV fluids and Decadron shot and he felt better. The patient's heart rate was mildly on the lower side 53, 64, 74. Discussed possibility of low heart rate and dizziness, verbalized understanding. He is on Metoprolol 50 mg b.i.d. at this time. No other medications which can lower heart rate. The patient had a history where he has to be on pacemaker and it has to be removed. Will keep evaluating the patient as the patient was in observation. I don't think there is nothing acute going on at this time so will discharge the patient. Will place on holter monitor and carotid ultrasound as outpatient. Meanwhile, will treat the patient with steroids and antibiotics for possibility of middle ear infection, middle ear fluid and symptomatic treatment with Antivert. Given his conditions for the heart, will definitely evaluate the rest of the workup as outpatient and closely monitor the patient. TIME SPENT: MORE THAN 45 MINUTES MTDD
== END 2018-01-09 10:00 | disposition home or self-care (01) ==
LOC: MEDSURG B 16:10
PROVIDERS: ADMIT Emergency Medicine; ATTEND Emergency Medicine
DX: R42 Dizziness and giddiness (principal); R00.1 Bradycardia, unspecified; I10 Essential (primary) hypertension; E78.5 Hyperlipidemia, unspecified; I25.10 Atherosclerotic heart disease of native coronary artery without angina pectoris; J44.9 Chronic obstructive pulmonary disease, unspecified; I73.9 Peripheral vascular disease, unspecified; R64 Cachexia; Z79.899 Other long term (current) drug therapy; Z95.5 Presence of coronary angioplasty implant and graft; Z95.1 Presence of aortocoronary bypass graft; Z95.0 Presence of cardiac pacemaker
CPT/HCPCS: 36415; 80053; 81001; 82550; 84484; 85025; 93005; 93010

== ENCOUNTER 2018-01-21 11:54 | Outpatient (CLI) ==
--- NOTE | 2018-01-21 13:51 | US ---
EXAM: Carotid ultrasound HISTORY: Dizziness and giddiness COMPARISON: None the the the TECHNIQUE: Carotid ultrasound was performed using ddoson scale, color, and Doppler imaging was perform ed. FINDINGS: Right carotid: There is atherosclerotic plaque in the common carotid and bulb/proximal internal mars tid artery. Peak systolic velocity measurement in the right internal carotid artery is 1.1 meters pe r second. End-diastolic velocity measurement in the right internal carotid artery is 0.5 meters per second. Right internal to common carotid artery peak systolic velocity ratio is 1.6. Flow in the ri ght vertebral artery is antegrade. Left carotid: There is atherosclerotic plaque in the common carotid and bulb/proximal internal carot id artery. Peak systolic velocity measurement in the left internal carotid artery is 1.1 meters per second. End-diastolic velocity measurement in the left internal carotid artery is 0.5 meters per sec ond. Left internal to common carotid artery peak systolic velocity ratio measures 1.6. Flow in the left vertebral artery is antegrade. IMPRESSION: 1. Right internal carotid: Mild (less than 50%) stenosis. 2. Left internal carotid: Mild (less than 50%) stenosis.
== END 2018-01-21 11:55 | disposition home or self-care (01) ==
LOC: RAD 11:54
PROVIDERS: ATTEND Emergency Medicine
DX: R42 Dizziness and giddiness (principal)

== ENCOUNTER 2018-03-22 10:19 | Observation (INO) ==
[2018-03-22 10:51] VITALS: BMI 14.8
[2018-03-22] MEDS ORDERED: TYLENOL PO PRN (11:14)
[2018-03-22] MEDS: SODIUM CHLORIDE 1,000 ML IV SCH (11:37)
[2018-03-22] MEDS: XANAX PO SCH (11:37)
[2018-03-22] MEDS: NORCO 10-325 PO SCH ×2 (14:39→20:00)
[2018-03-22] MEDS ORDERED: ACETAMINOPHEN PO SCH (15:00)
[2018-03-22] MEDS ORDERED: HYDROCODONE PO SCH (15:00)
--- NOTE | 2018-03-22 15:10 | CT ---
Exam: CT of the brain without intravenous contrast. Comparison: MRI of the brain performed 01/24/2018. Reason for exam: Dizziness. FINDINGS: No acute intracranial hemorrhage, mass effect, ventricular dilatation, or territorial infa rction. The quadrigeminal and ambient cisterns are patent. There is no extraaxial fluid collection. The calvarium appears intact without depressed skull fracture. Impression: No acute intracranial findings.
[2018-03-22] MEDS: ZESTRIL PO SCH (19:59)
[2018-03-22] MEDS: MONOKET PO SCH (19:59)
[2018-03-22] MEDS: SYMBICORT 160-4.5 MCG INHALER IH SCH (19:59)
[2018-03-22] MEDS ORDERED: NON-FORMULARY MEDICATION (Lisinopril [Lisinopril] 20 MG) PO SCH (21:00)
[2018-03-23] MEDS: SYMBICORT 160-4.5 MCG INHALER IH SCH ×2 (08:58→20:37)
[2018-03-23] MEDS: SPIRIVA IH SCH (09:00)
[2018-03-23] MEDS: NORCO 10-325 PO SCH ×3 (09:01→20:36)
[2018-03-23] MEDS: XANAX PO SCH ×2 (09:02→12:25)
[2018-03-23] MEDS: MONOKET PO SCH ×2 (09:02→20:36)
[2018-03-23] MEDS: LIPITOR PO SCH (09:02)
[2018-03-23] MEDS: ZESTRIL PO SCH ×2 (09:02→20:36)
[2018-03-23] MEDS: ASPIRIN EC PO SCH (09:02)
[2018-03-23] MEDS: PLAVIX PO SCH (09:02)
[2018-03-23] MEDS: SODIUM CHLORIDE 1,000 ML IV SCH (11:09)
[2018-03-24] MEDS: SYMBICORT 160-4.5 MCG INHALER IH SCH (08:15)
[2018-03-24] MEDS: MONOKET PO SCH (08:15)
[2018-03-24] MEDS: XANAX PO SCH (08:15)
[2018-03-24] MEDS: SPIRIVA IH SCH (08:15)
[2018-03-24] MEDS: NORCO 10-325 PO SCH (08:15)
[2018-03-24] MEDS: ASPIRIN EC PO SCH (08:15)
[2018-03-24] MEDS: LIPITOR PO SCH (08:16)
[2018-03-24] MEDS: PLAVIX PO SCH (08:16)
[2018-03-24] MEDS ORDERED: ZESTRIL PO SCH ×2 (08:30→09:00)
[2018-03-24 09:31] VITALS: TEMP 97.7
--- NOTE | 2018-03-24 10:30 | PN ---
DATE OF SERVICE: 03/23/18 SUBJECTIVE: The patient was admitted from the office for the light headedness, dizziness and symptomatic bradycardia. Heart rate was 42-50 in the office. The patient is on Beta norah. We stopped the beta norah. Heart rate went up to almost 58- 59 and 60. No light headedness. Still has some fogginess. CT head is negative. REVIEW OF SYSTEMS: CONSTITUTIONAL: No fever, no chills. HEENT: Normal. ENDOCRINE: No weight gain, no weight loss. CVS: No angina symptoms. No CHF symptoms. No palpitations. No atypical chest pain for CAD. No shortness of breath. No PND, no orthopnea. RESPIRATORY: No cough, no hemoptysis. GI: No nausea, no vomiting. No abdominal pain. : No hematuria. No polyuria. MUSCULOSKELETAL: No joint swelling. PSYCHIATRIC: Not anxious. No depression. No suicidal thoughts. No homicidal thoughts. SKIN: Intact. No rash. PHYSICAL EXAMINATION: V/S: Blood pressure 154/86, respiratory rate 20, heart rate 79, temperature 97.0 with saturation 95%. GENERAL: Thin built man laying in a bed. HEENT: Normocephalic, atraumatic. Mucosa dry, Pallor positive. No icterus. NECK: Supple. No JVD, no carotid bruit. No lymphadenopathy. LUNGS: Clear to auscultation. No rales or rhonchi. HEART: S1, S2 normal. No S3. No murmur, gallop or regurgitation. ABDOMEN: Soft, nontender. Bowel sounds active. No rigidity. No rebound or guarding. No CVA tenderness. EXTREMITIES: No cyanosis, clubbing or pedal edema. MUSCULOSKELETAL: No joint swelling. NEUROLOGIC: Awake, alert. No focal deficit. LYMPHATIC: No lymph nodes palpable. SKIN: Intact. LABS: WBC 7.58, hgb 11.8, hct 35.4, plt count 150, sodium 136, potassium 4.3, chloride 105, bicarb 25, BUN 23, creatinine 1.0 and glucose 84. ASSESSMENT: 1. Symptomatic bradycardia most likely from the medications, Beta norah been on holding 2. History of CAD 3. CHF 4. COPD 5. Peripheral vascular disease 6. Hypertension PLAN: 1. Continue holding the Beta blockers 2. IV fluids 3. Out of bed to chair activity as tolerated 4. CT of the head is negative for the stroke on the patient. TIME SPENT: More than 35 minutes MTDD
[2018-03-24 12:48] VITALS: BP 136/84
--- NOTE | 2018-03-24 17:13 | PCM.HOSP ---
- Observation Care Discharge [id number] OBS Care Discharge (65054): 03-24 - Initial Observation Care [id number] High Complexity 70 Minutes (58795): 03-22 - Subsequent Observation Care [id number] 35 Minutes per Day ([id number]): 03-23
--- NOTE | 2018-03-30 14:49 | DS ---
DATE OF SERVICE: 03/24/18 FINAL DIAGNOSIS: 1. Symptomatic bradycardia mostly from Beta Daniel usage 2. COPD 3. Hypertension 4. Hyperlipidemia 5. PAD 6. GERD 7. [place] 8. Anxiety disorder 9. Bypass surgery, stent application 10.Pacemaker and removal 11.AAA repair 12.Anterior cervical fusion 13.CAD DISCHARGE INSTRUCTIONS: Discharge the patient home. Please keep in mind the Metoprolol being held and stopped. Continue the rest of the medication. Followup with Dr. Hutchins; March 31. MEDICATIONS AT DISCHARGE: Proventil Plavix Atorvastatin Imdur Xanax Aspirin Symbicort Spiriva Hydrocodone NEW PRESCRIPTIONS: Lisinopril 40mg twice a day DIET INSTRUCTIONS: Cardiac and Healthy diet ACTIVITY: As much tolerated DISEASE SPECIFIC EDUCATION: Symptomatic bradycardia Medication side effects been discussed and verbalized understanding. HOSPITAL COURSE: Shalom Lainez who came to the office being feeling dizzy, light headed and heart rate was 44 and 45 in the office. The patient is on the Beta Blockers. Given his heart conditions and being symptomatic of bradycardia the patient was admitted to the hospital. Metoprolol stopped and started on IV fluids. CT head without contrast was negative. The patient recently had a carotid ultrasound so it was not repeated. Gradually the heart rate was getting better and the blood pressure was also going up. Hgb and hct CBC and CMP are all normal. Blood pressure was going up to 159/89 so Lisinopril made 40mg twice a day and blood pressure came down. Meanwhile the patient been up and about walking and did not have any problems. As the patient is good and did not have any problems the patient being discharged home. TIME SPENT: MORE THAN 65 MINUTES MTDFara
== END 2018-03-24 12:55 | disposition home or self-care (01) ==
LOC: MEDSURG A 10:19 → INTOOBSV 10:19
PROVIDERS: ADMIT Emergency Medicine; ATTEND Emergency Medicine
DX: R42 Dizziness and giddiness (principal); R00.1 Bradycardia, unspecified; J44.9 Chronic obstructive pulmonary disease, unspecified; I10 Essential (primary) hypertension; E78.5 Hyperlipidemia, unspecified; I73.9 Peripheral vascular disease, unspecified; K21.9 Gastro-esophageal reflux disease without esophagitis; F41.9 Anxiety disorder, unspecified
CPT/HCPCS: 36415; 80053; 82550; 84484; 85025; 93005; 93010; 99217; 99220; 99226

== ENCOUNTER 2018-09-20 13:55 | Outpatient (CLI) ==
--- NOTE | 2018-09-20 14:22 | DI ---
EXAM: CHEST FRONTAL AND LATERAL VIEWS HISTORY: Cough. COMPARISON: 11/30/2017 FINDINGS: Heart size and mediastinal contour remain within normal limits. There is diffuse, chron ic appearing interstitial accentuation. Lungs are hyperinflated and there is relative lucency of the lung zones consistent with pulmonary emphysema. There are scattered calcifications suggesting old g ranulomatous disease. No acute infiltrates are seen. No vascular congestion. There is no consolida tion, visible pleural fluid or pneumothorax. Bones reveal no acute fracture. Stabilization hardwar e lower cervical spine. IMPRESSION: 1. Findings suggestive of moderate chronic obstructive pulmonary disease. No acute infiltrates are identified or change since previous exam.
--- NOTE | 2018-09-20 14:32 | DI ---
EXAM: Four views of the right ribs. History: Right rib pain. Comparison: Chest radiograph 09/20/2018 Findings: Postsurgical changes of the cervical spine. Chronic obstructive pulmonary disease within the lungs. A nondisplaced fracture of the right lateral seventh rib. Impression: Nondisplaced fracture of the right lateral seventh rib
== END 2018-09-20 13:56 | disposition home or self-care (01) ==
LOC: RAD 13:55
PROVIDERS: ATTEND Nurse Practitioner Family
DX: R05 Cough (principal); R07.81 Pleurodynia

== ENCOUNTER 2018-10-07 09:27 | Outpatient (CLI) | payer BC, MEDICAID | END 2018-10-07 09:28 | disposition home or self-care (01) | LOC: RHC-LAB 09:27 | PROVIDERS: ATTEND Nurse Practitioner Family | DX: R05 Cough (principal) | CPT/HCPCS: 87502 ==

== ENCOUNTER 2018-11-07 10:23 | Outpatient (CLI) ==
--- NOTE | 2018-11-07 11:37 | DI ---
EXAM: PA view of the chest and multiple bilateral views of the ribs HISTORY: Pleural pain. COMPARISON: Chest x-ray 09/20/2018 and multiple priors including CT chest 11/05/2017 FINDINGS: There is no acute consolidation, nodule or mass. Lungs are mildly hyperinflated. There is no pneumothorax or pleural effusion. The cardiomediastinal silhouette is unremarkable. There is ce rvical fusion hardware present. Multiple views of the bilateral ribs demonstrate no lytic or blastic lesion. There is no displaced f racture or cortical abnormality. IMPRESSION: 1. No acute abnormality or fracture of the ribs. 2. Mild hyperinflation of the lungs that may suggest a component of chronic obstructive pulmonary di sease.
== END 2018-11-07 10:24 | disposition home or self-care (01) ==
LOC: RAD 10:23
PROVIDERS: ATTEND Nurse Practitioner Family
DX: R07.81 Pleurodynia (principal); J44.1 Chronic obstructive pulmonary disease with (acute) exacerbation; I10 Essential (primary) hypertension
CPT/HCPCS: 36415; 80053; 85025

== ENCOUNTER 2018-11-07 10:35 | Outpatient (CLI) | END 2018-11-07 10:36 | disposition home or self-care (01) | LOC: RHC-LAB 10:35 | PROVIDERS: ATTEND Nurse Practitioner Family | DX: J44.1 Chronic obstructive pulmonary disease with (acute) exacerbation (principal); I10 Essential (primary) hypertension | CPT/HCPCS: 36415; 80053; 85025 ==

== ENCOUNTER 2018-11-23 10:25 | Outpatient (CLI) | END 2018-11-23 10:26 | disposition home or self-care (01) | LOC: CAR 10:25 | PROVIDERS: ATTEND Internal Medicine Interventional Cardiology | DX: I25.10 Atherosclerotic heart disease of native coronary artery without angina pectoris (principal); I35.1 Nonrheumatic aortic (valve) insufficiency ==

== ENCOUNTER 2018-12-01 10:16 | Outpatient (CLI) ==
--- NOTE | 2018-12-01 14:15 | CT ---
Exam: Chest CT without contrast HISTORY: Lung nodule. Procedures: contiguous axial images were obtained through the chest without the use of contrast. Sa gittal and coronal reformatted images were also created and reviewed. Comparison: 11/05/2017 and 06/09/2017. Findings: There is no axillary lymphadenopathy. Subcentimeter lymph nodes are noted throughout the m ediastinum, without mediastinal lymphadenopathy. Calcified mediastinal lymph nodes are again noted. There is atherosclerotic disease, including the coronary arteries. The ascending thoracic aorta jorge a sures up to 3.4 cm x 3.6 cm. There is no pericardial effusion. Limited visualization of the upper a bdominal soft tissues demonstrates fluid density probable cysts in each kidney. Lung windows demonst rate calcified granulomata. There is no pneumothorax. Mild pulmonary emphysematous disease is noted . There is redemonstration of biapical pleural parenchymal thickening/scarring. There is no suspici ous pulmonary nodule identified. The trachea and mainstem bronchi appear patent. Bone windows demonstrate no evidence of acute fracture. Mild degenerative findings are noted in the spine. There is a subacute or chronic appearing appearing anterior lateral right sixth rib fracture with pseudoarthrosis formation, new from prior. Impressions: No acute cardiopulmonary disease. Pulmonary emphysematous disease. Atherosclerosis, including the coronary arteries. Subacute or chronic appearing anterior lateral right sixth rib fracture with pseudoarthrosis formatio n. No pulmonary nodule is identified.
== END 2018-12-01 10:17 | disposition home or self-care (01) ==
LOC: RAD 10:16
PROVIDERS: ATTEND Internal Medicine Pulmonary Disease
DX: R91.1 Solitary pulmonary nodule (principal)

== ENCOUNTER 2019-01-16 08:42 | Outpatient (CLI) | END 2019-01-16 08:43 | disposition home or self-care (01) | LOC: LAB 08:42 | PROVIDERS: ATTEND Internal Medicine Interventional Cardiology | DX: I73.9 Peripheral vascular disease, unspecified (principal); I10 Essential (primary) hypertension | CPT/HCPCS: 36415; 82565 ==